=== PATIENT | female | born 1980 | race Caucasian/White ===

== ENCOUNTER 2018-02-24 11:53 | Inpatient (IN) | payer OTHER ==
[2018-02-24 13:07] VITALS: BMI 23.3
[2018-02-24] MEDS ORDERED: P-EPHED 60MG/TRIPROLIDI 2.5MG TABLET PO PRN (13:48)
[2018-02-24] MEDS ORDERED: MENTHOL/PHENOL 1 EACH UD MM PRN (13:48)
[2018-02-24] MEDS ORDERED: ACETAMINOPHEN 325 MG TABLET (FP) PO PRN (13:48)
[2018-02-24] MEDS ORDERED: IBUPROFEN 400 MG TABLET (FP) PO PRN (13:48)
[2018-02-24] MEDS ORDERED: guaiFENesin/D-METHORPHAN HB 10 ML UNIT-DOSE CUPS PO PRN (13:48)
[2018-02-24] MEDS ORDERED: MAGNESIUM CITRATE 300 ML BOTTLE PO PRN (13:48)
[2018-02-24] MEDS ORDERED: LOPERAMIDE HCL 2 MG CAPSULE PO PRN (13:48)
[2018-02-24] MEDS ORDERED: MAGNESIUM HYDROX 2400MG/30ML ORAL SUSPENSION 30 ML CUP PO PRN (13:48)
[2018-02-24] MEDS ORDERED: MAG HYDROX/AL HYDROX/SIMETH 30 ML UNIT-DOSE CUP PO PRN (13:48)
[2018-02-24] MEDS ORDERED: NICOTINE POLACRILEX 2 MG GUM BUC PRN (13:48)
[2018-02-24] MEDS ORDERED: chlordiazePOXIDE HCL 25 MG CAPSULE PO PRN (13:48)
--- NOTE | 2018-02-24 13:53 | HP ---
CIWA Score - CIWA Score Nausea/Vomitin Muscle Tremors: 2 Anxiety: 3 Agitation: 4-Moderately Restless Paroxysmal Sweats: 2 Orientation: 0-Oriented Tacttile Disturbances: 0-None Auditory Disturbances: 0-None Visual Disturbances: 0-None Headache: 2-Mild CIWA-Ar Total Score: 16 Admission ROS BHS - HPI Chief Complaint: alcohol withdrawal symptoms Allergies/Adverse Reactions: Allergies Allergy/AdvReac Type Severity Reaction Status Date / Time Fish Containing Products Allergy Severe Swelling Verified 02/24/18 13:43 History of Present Illness: 37 yo female with hx of nicotine, crack/ cocaine, THC dependence is here seeking detox for the first time, denies prior detox treatment . PMHX : insomnia, anxiety, depression. Denies suicidal / homicidal ideation or hx of suicide attempts. Exam Limitations: No Limitations - Ebola screening Have you traveled outside of the country in the last 21 days: No Have you had contact with anyone from an Ebola affected area: No Have you been sick,other than usual withdrawal symptoms: No Do you have a fever: No - Review of Systems Constitutional: Chills, Diaphoresis, Loss of Appetite, Weakness, Unintentional Wgt. Loss EENT: reports: Other (decrease vision wears glasses) Respiratory: reports: No Symptoms reported Cardiac: reports: No Symptoms Reported GI: reports: Diarrhea, Nausea, Poor Appetite, Poor Fluid Intake, Vomiting : reports: No Symptoms Reported Musculoskeletal: reports: Back Pain Integumentary: reports: No Symptoms Reported Neuro: reports: Headache Endocrine: reports: Increased Thirst Hematology: reports: No Symptoms Reported Psychiatric: reports: Orientated x3, Anxious Other Systems: Reviewed and Negative Patient History - Patient Medical History Hx Anemia: No Hx Asthma: Yes Hx Chronic Obstructive Pulmonary Disease (COPD): No Hx Cancer: No Hx Cardiac Disorders: No Hx Congestive Heart Failure: No Hx Hypertension: No Hx Hypercholesterolemia: No Hx Pacemaker: No HX Cerebrovascular Accident: No Hx Seizures: No Hx Diabetes: No Hx Gastrointestinal Disorders: No Hx Liver Disease: No Hx Genitourinary Disorders: No Hx Sexually Transmitted Disorders: No Hx Renal Disease (ESRD): No Hx Thyroid Disease: No Hx Human Immunodeficiency Virus (HIV): No Hx Hepatitis C: No Hx Depression: Yes Hx Suicide Attempt: No Hx Bipolar Disorder: No Hx Schizophrenia: No - Patient Surgical History Past Surgical History: No - PPD History Previous Implant?: Yes Documented Results: Negative w/o proof Implanted On Prior R Admission?: No PPD to be Administered?: Yes - Reproductive History Last Menstrual Period: 02/03/18 Patient : No - Smoking Cessation Smoking history: Current every day smoker Have you smoked in the past 12 months: Yes Aproximately how many cigarettes per day: 5 Hx Chewing Tobacco Use: No Initiated information on smoking cessation: Yes 'Breaking Loose' booklet given: 02/24/18 - Substance & Tx. History Hx Alcohol Use: Yes Hx Substance Use: Yes Substance Use Type: Alcohol, Cocaine, Marijuana Hx Substance Use Treatment: No - Substances Abused Alcohol Route: Oral Frequency: Daily Amount used: fifth of vodka Age of first use: 11 Date of Last Use: 02/24/18 Crack Route: Smoking Frequency: Daily Amount used: $100 Age of first use: 18 Date of Last Use: 02/23/18 Family Disease History - Family Disease History Family Disease History: Heart Disease: Mother (HTN, DM, Hyperlipidemia ), [place]: Father (alive ), Other: Father, Mother Admission Physical Exam [facility] - Vital Signs Vital Signs: Vital Signs - 24 hr 02/24/18 13:04 Temperature 98.3 F Pulse Rate 67 Respiratory 20 Rate Blood Pressure 115/77 - Physical General Appearance: Yes: Disheveled, Mild Distress, Sweating, Anxious HEENTM: Yes: Hearing grossly Normal, Normal ENT Inspection, Normocephalic, Normal Voice, [place], Tm's normal Respiratory: Yes: Chest Non-Tender, Lungs Clear, Normal Breath Sounds, No Respiratory Distress, No Accessory Muscle Use Neck: Yes: No masses,lesions,Nodules, Trachea in good position Breast: Yes: Breast Exam Deferred Cardiology: Yes: Regular Rhythm, Regular Rate Abdominal: Yes: Normal Bowel Sounds, Non Tender, Flat, Soft Genitourinary: Yes: Within Normal Limits Back: Yes: Normal Inspection Musculoskeletal: Yes: full range of Motion, Gait Steady, Pelvis Stable, Back pain Extremities: Yes: Normal Capillary Refill, Normal Inspection, Normal Range of Motion, Non-Tender, Tremors Neurological: Yes: media aid II-XII NML intact, Fully Oriented, Alert, Motor Strength 5/5, Depressed Affect Integumentary: Yes: Normal Color, Warm, Diaphoresis Lymphatic: Yes: Within Normal Limits - Diagnostic (1) Asthma Current Visit: Yes Status: Acute (2) Alcohol dependence with withdrawal Current Visit: Yes Status: Acute Qualifiers: Complication of substance-induced condition: uncomplicated Qualified Code(s ): F10.230 - Alcohol dependence with withdrawal, uncomplicated (3) Marijuana dependence Current Visit: Yes Status: Acute (4) Cocaine dependence Current Visit: Yes Status: Acute Qualifiers: Substance use status: uncomplicated Qualified Code(s): F14.20 - Cocaine dependence, uncomplicated (5) Nausea and vomiting Current Visit: Yes Status: Acute Qualifiers: Vomiting type: unspecified Cleared for Admission [facility] - Detox or Rehab [facility] Level of Care: Medically Managed Detox Regimen/Protocol: Librium [facility] Breath Alcohol Content Breath Alcohol Content: 0 Urine Pregancy Test - Result Urine Test Results: Negative- NO Line Present Urine Drug Screen - Results Drug Screen Negative: No Urine Drug Screen Results: THC-Marijuana, PACO-Cocaine
[2018-02-24] MEDS ORDERED: ALBUTEROL SO4 0.083% IH SOL 2.5 MG/3 ML VIAL.NEB. NEB PRN (14:01)
[2018-02-24] MEDS ORDERED: ONDANSETRON *ODT* 4 MG TABLET SL PRN (14:02)
[2018-02-24] MEDS ORDERED: chlordiazePOXIDE HCL 25 MG CAPSULE PO ONE (14:30)
[2018-02-24] MEDS: chlordiazePOXIDE HCL 25 MG CAPSULE PO SCH ×2 (17:44→22:14)
[2018-02-24 19:46] LABS: URINE APPEARANCE CLEAR; URINE BILIRUBIN NEGATIVE (<2.0 mg/dL); URINE COLOR YELLOW; URINE GLUCOSE (UA) NEGATIVE (NEGATIVE); URINE KETONE NEGATIVE (NEGATIVE); URINE LEUK ESTERASE NEGATIVE (NEGATIVE); URINE NITRITE NEGATIVE (NEGATIVE); URINE PROTEIN NEGATIVE (NEGATIVE); URINE UROBILINOGEN NEGATIVE mg/dL (0.2-1.0)
[2018-02-24] MEDS: MELATONIN 5 MG TABLETS PO PRN (22:14)
[2018-02-24] MEDS: THIAMINE HCL 100 MG TABLET (FP) PO SCH (22:14)
[2018-02-25] MEDS: chlordiazePOXIDE HCL 25 MG CAPSULE PO SCH ×4 (05:54→22:27)
[2018-02-25] MEDS: PRENATAL VITAMINS W/ FOLIC ACID TABLET (FP) PO SCH (10:32)
[2018-02-25] MEDS: NICOTINE 14 MG/24 HOURS TOPICAL PATCH TD SCH (10:33)
[2018-02-25 10:35] LABS: HEMATOCRIT 39.9 % (32.4-45.2); HEMOGLOBIN 13.5 GM/dL (10.7-15.3); MCHC 33.9 g/dl (32.0-36.0); MEAN CELL VOLUME 94.5 fl (80-96); MEAN PLT VOLUME 8.9 fl (7.5-11.1); PLATELET COUNT 235 K/MM3 (134-434); RBC 4.23 M/mm3 (3.60-5.2); RDW 13.3 % (11.6-15.6)
[2018-02-25 11:01] LABS: ALBUMIN 3.2 g/dl (3.4-5.0); ANION GAP 8 (8-16); BLOOD UREA NITROGEN 13 mg/dL (7-18); CHLORIDE 109 mmol/L (98-107); CO2 22 mmol/L (21-32); CREATININE 0.7 mg/dL (0.55-1.02); GLUCOSE,RANDOM 76 mg/dL (74-106); POTASSIUM 4.5 mmol/L (3.5-5.1); SGOT/AST 14 U/L (15-37); SGPT/ALT 19 U/L (12-78); SODIUM 139 mmol/L (136-145)
[2018-02-25 11:03] LABS: ALK PHOS 47 U/L (45-117); BILIRUBIN,TOTAL 0.6 mg/dL (0.2-1.0); TOT PROT 6.4 g/dl (6.4-8.2)
--- NOTE | 2018-02-25 17:04 | PN ---
S CIWA - CIWA Score Nausea/Vomitin Muscle Tremors: 2 Anxiety: 2 Agitation: 2 Paroxysmal Sweats: 2 Orientation: 0-Oriented Tacttile Disturbances: 2-Mild Itch/Numbness/Burn Auditory Disturbances: 0-None Visual Disturbances: 1-Very Mild Sensitivity Headache: 2-Mild CIWA-Ar Total Score: 15 S Progress Note (SOAP) Subjective: Tremors, abdominal cramps sweats and sleep interruption Objective: 02/25/18 17:02 Vital Signs - 8 hr 02/25/18 02/25/18 10:48 15:05 Temperature 97.7 F 98.4 F Pulse Rate 68 84 Respiratory 16 18 Rate Blood Pressure 123/80 110/64 Laboratory Last Values WBC 7.0 K/mm3 (4.0-10.0) 02/25/18 08:00 RBC 4.23 M/mm3 (3.60-5.2) 02/25/18 08:00 Hgb 13.5 GM/dL (10.7-15.3) 02/25/18 08:00 Hct 39.9 % (32.4-45.2) 02/25/18 08:00 MCV 94.5 fl (80-96) 02/25/18 08:00 MCH 32.0 pg (25.7-33.7) 02/25/18 08:00 MCHC 33.9 g/dl (32.0-36.0) 02/25/18 08:00 RDW 13.3 % (11.6-15.6) 02/25/18 08:00 Plt Count 235 K/MM3 (134-434) 02/25/18 08:00 MPV 8.9 fl (7.5-11.1) 02/25/18 08:00 Sodium 139 mmol/L (136-145) 02/25/18 08:00 Potassium 4.5 mmol/L (3.5-5.1) 02/25/18 08:00 Chloride 109 mmol/L (98-107) H 02/25/18 08:00 Carbon Dioxide 22 mmol/L (21-32) 02/25/18 08:00 Anion Gap 8 (8-16) 02/25/18 08:00 BUN 13 mg/dL (7-18) 02/25/18 08:00 Creatinine 0.7 mg/dL (0.55-1.02) 02/25/18 08:00 Creat Clearance w eGFR > 60 (>60) 02/25/18 08:00 Random Glucose 76 mg/dL (74-106) 02/25/18 08:00 Calcium 8.0 mg/dL (8.5-10.1) L 02/25/18 08:00 Total Bilirubin 0.6 mg/dL (0.2-1.0) 02/25/18 08:00 AST 14 U/L (15-37) L 02/25/18 08:00 ALT 19 U/L (12-78) 02/25/18 08:00 Alkaline Phosphatase 47 U/L (45-117) 02/25/18 08:00 Total Protein 6.4 g/dl (6.4-8.2) 02/25/18 08:00 Albumin 3.2 g/dl (3.4-5.0) L 02/25/18 08:00 Urine Color Yellow 02/24/18 14:14 Urine Appearance Clear 02/24/18 14:14 Urine pH 6.0 (5.0-8.0) 02/24/18 14:14 Ur Specific [place] 1.019 (1.001-1.035) 02/24/18 14:14 Urine Protein Negative (NEGATIVE) 02/24/18 14:14 Urine Glucose (UA) Negative (NEGATIVE) 02/24/18 14:14 Urine Ketones Negative (NEGATIVE) 02/24/18 14:14 Urine Blood Negative (NEGATIVE) 02/24/18 14:14 Urine Nitrite Negative (NEGATIVE) 02/24/18 14:14 Urine Bilirubin Negative (<2.0 mg/dL) 02/24/18 14:14 Urine Urobilinogen Negative mg/dL (0.2-1.0) 02/24/18 14:14 Ur Leukocyte Esterase Negative (NEGATIVE) 02/24/18 14:14 HIV 1&2 Antibody Screen Negative 02/25/18 08:00 HIV P24 Antigen Negative 02/25/18 08:00 Labs noted Assessment: 02/25/18 17:03 Withdrawal sx Plan: Continue detox
[2018-02-25] MEDS: hydrOXYzine PAMOATE 50 MG CAPSULE (FP) PO PRN (20:45)
[2018-02-25] MEDS: THIAMINE HCL 100 MG TABLET (FP) PO SCH (22:27)
[2018-02-25] MEDS: MELATONIN 5 MG TABLETS PO PRN (22:27)
[2018-02-26] MEDS: chlordiazePOXIDE HCL 25 MG CAPSULE PO SCH ×2 (06:17→10:33)
[2018-02-26] MEDS: PRENATAL VITAMINS W/ FOLIC ACID TABLET (FP) PO SCH (10:32)
[2018-02-26] MEDS: NICOTINE 14 MG/24 HOURS TOPICAL PATCH TD SCH (10:33)
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
--- NOTE | 2018-02-26 12:17 | PN ---
S CIWA - CIWA Score Nausea/Vomitin-Mild Nausea/No Vomiting Muscle Tremors: 4-Moderate,w/Arms Extend Anxiety: 3 Agitation: 3 Paroxysmal Sweats: 1-Minimal Palms Moist Orientation: 0-Oriented Tacttile Disturbances: 1-Very Mild Itch/Numbness Auditory Disturbances: 0-None Visual Disturbances: 0-None Headache: 0-None Present CIWA-Ar Total Score: 13 BHS Progress Note (SOAP) Subjective: SWEAT TREMOR TROUBLE SLEEP AT NIGHT WANTS TO FOLLOW UP WITH PSYCHIATRIST FOR PSYCHOTROPIC MEDICATION Objective: 02/26/18 12:16 Vital Signs Temperature 97.9 F 02/26/18 10:28 Pulse Rate 73 02/26/18 10:28 Respiratory Rate 18 02/26/18 10:28 Blood Pressure 119/72 02/26/18 10:28 O2 Sat by Pulse Oximetry (%) Laboratory 02/24/18 02/25/18 02/25/18 14:14 08:00 08:00 WBC 7.0 K/mm3 K/mm3 (4.0-10.0) RBC 4.23 M/mm3 M/mm3 (3.60-5.2) Hgb 13.5 GM/dL GM/dL (10.7-15.3) Hct 39.9 % % (32.4-45.2) MCV 94.5 fl fl (80-96) MCH 32.0 pg pg (25.7-33.7) MCHC 33.9 g/dl g/dl (32.0-36.0) RDW 13.3 % % (11.6-15.6) Plt Count 235 K/MM3 K/MM3 (134-434) MPV 8.9 fl fl (7.5-11.1) Sodium Potassium Chloride Carbon Dioxide Anion Gap BUN Creatinine Creat Clearance w eGFR Random Glucose Calcium Total Bilirubin AST ALT Alkaline Phosphatase Total Protein Albumin Urine Color Yellow Urine Appearance Clear Urine pH 6.0 (5.0-8.0) Ur Specific [place] 1.019 (1.001-1.035) Urine Protein Negative (NEGATIVE) Urine Glucose (UA) Negative (NEGATIVE) Urine Ketones Negative (NEGATIVE) Urine Blood Negative (NEGATIVE) Urine Nitrite Negative (NEGATIVE) Urine Bilirubin Negative (<2.0 mg/dL) Urine Urobilinogen Negative mg/dL mg/dL (0.2-1.0) Ur Leukocyte Esterase Negative (NEGATIVE) RPR Titer HIV 1&2 Antibody Screen Negative HIV P24 Antigen Negative 02/25/18 02/25/18 08:00 08:00 WBC RBC Hgb Hct MCV MCH MCHC RDW Plt Count MPV Sodium 139 mmol/L mmol/L (136-145) Potassium 4.5 mmol/L mmol/L (3.5-5.1) Chloride 109 mmol/L H mmol/L (98-107) Carbon Dioxide 22 mmol/L mmol/L (21-32) Anion Gap 8 (8-16) BUN 13 mg/dL mg/dL (7-18) Creatinine 0.7 mg/dL mg/dL (0.55-1.02) Creat Clearance w eGFR > 60 (>60) Random Glucose 76 mg/dL mg/dL (74-106) Calcium 8.0 mg/dL L mg/dL (8.5-10.1) Total Bilirubin 0.6 mg/dL mg/dL (0.2-1.0) AST 14 U/L L U/L (15-37) ALT 19 U/L U/L (12-78) Alkaline Phosphatase 47 U/L U/L (45-117) Total Protein 6.4 g/dl g/dl (6.4-8.2) Albumin 3.2 g/dl L g/dl (3.4-5.0) Urine Color Urine Appearance Urine pH Ur Specific [place] Urine Protein Urine Glucose (UA) Urine Ketones Urine Blood Urine Nitrite Urine Bilirubin Urine Urobilinogen Ur Leukocyte Esterase RPR Titer Nonreactive (NONREACTIVE) HIV 1&2 Antibody Screen HIV P24 Antigen Laboratory Last Values WBC 7.0 K/mm3 (4.0-10.0) 02/25/18 08:00 RBC 4.23 M/mm3 (3.60-5.2) 02/25/18 08:00 Hgb 13.5 GM/dL (10.7-15.3) 02/25/18 08:00 Hct 39.9 % (32.4-45.2) 02/25/18 08:00 MCV 94.5 fl (80-96) 02/25/18 08:00 MCH 32.0 pg (25.7-33.7) 02/25/18 08:00 MCHC 33.9 g/dl (32.0-36.0) 02/25/18 08:00 RDW 13.3 % (11.6-15.6) 02/25/18 08:00 Plt Count 235 K/MM3 (134-434) 02/25/18 08:00 MPV 8.9 fl (7.5-11.1) 02/25/18 08:00 Sodium 139 mmol/L (136-145) 02/25/18 08:00 Potassium 4.5 mmol/L (3.5-5.1) 02/25/18 08:00 Chloride 109 mmol/L (98-107) H 02/25/18 08:00 Carbon Dioxide 22 mmol/L (21-32) 02/25/18 08:00 Anion Gap 8 (8-16) 02/25/18 08:00 BUN 13 mg/dL (7-18) 02/25/18 08:00 Creatinine 0.7 mg/dL (0.55-1.02) 02/25/18 08:00 Creat Clearance w eGFR > 60 (>60) 02/25/18 08:00 Random Glucose 76 mg/dL (74-106) 02/25/18 08:00 Calcium 8.0 mg/dL (8.5-10.1) L 02/25/18 08:00 Total Bilirubin 0.6 mg/dL (0.2-1.0) 02/25/18 08:00 AST 14 U/L (15-37) L 02/25/18 08:00 ALT 19 U/L (12-78) 02/25/18 08:00 Alkaline Phosphatase 47 U/L (45-117) 02/25/18 08:00 Total Protein 6.4 g/dl (6.4-8.2) 02/25/18 08:00 Albumin 3.2 g/dl (3.4-5.0) L 02/25/18 08:00 Urine Color Yellow 02/24/18 14:14 Urine Appearance Clear 02/24/18 14:14 Urine pH 6.0 (5.0-8.0) 02/24/18 14:14 Ur Specific [place] 1.019 (1.001-1.035) 02/24/18 14:14 Urine Protein Negative (NEGATIVE) 02/24/18 14:14 Urine Glucose (UA) Negative (NEGATIVE) 02/24/18 14:14 Urine Ketones Negative (NEGATIVE) 02/24/18 14:14 Urine Blood Negative (NEGATIVE) 02/24/18 14:14 Urine Nitrite Negative (NEGATIVE) 02/24/18 14:14 Urine Bilirubin Negative (<2.0 mg/dL) 02/24/18 14:14 Urine Urobilinogen Negative mg/dL (0.2-1.0) 02/24/18 14:14 Ur Leukocyte Esterase Negative (NEGATIVE) 02/24/18 14:14 RPR Titer Nonreactive (NONREACTIVE) 02/25/18 08:00 HIV 1&2 Antibody Screen Negative 02/25/18 08:00 HIV P24 Antigen Negative 02/25/18 08:00 LAB NOTED Assessment: 02/26/18 12:16 WITHDRAWAL SX PSYCHIATRY REFERRAL Plan: CONTINUE DETOX
[2018-02-26] MEDS: hydrOXYzine PAMOATE 50 MG CAPSULE (FP) PO PRN (14:29)
[2018-02-26] MEDS ORDERED: chlordiazePOXIDE 5 MG CAPSULE PO SCH (17:00)
[2018-02-26 18:56] VITALS: BP 102/57; PULSE 85; TEMP 98.1
--- NOTE | 2018-02-26 20:01 | PN ---
BHS Progress Note Note: NURSE CALLED TO REPORT PATIENT WANTS TO LEAVE AND DOES NOT WANT TO SEE PROVIDER.
--- NOTE | 2018-02-26 20:02 | DS ---
[facility] Detox Discharge Summary Admission Date: 02/24/18 Discharge Date: 02/26/18 - History Present History: Alcohol Dependence, Cannabis Dependence, Cocaine Dependence Additional Comments: PT SIGNED OUT AMA. DECLINED TO COMPLETE DETOX. Pertinent Past History: PLEASE SEE DX BELOW. - Physical Exam Results Vital Signs: Vital Signs Temperature 98.1 F 02/26/18 18:56 Pulse Rate 85 02/26/18 18:56 Respiratory Rate 16 02/26/18 18:56 Blood Pressure 102/57 02/26/18 18:56 O2 Sat by Pulse Oximetry (%) Pertinent Admission Physical Exam Findings: WITHDRAWAL SX - Treatment Hospital Course: Discharged Condition Good - Medication Discharge Medications: Ambulatory Orders Gabapentin [Neurontin -] 300 mg PO Q8H 02/24/18 Trazodone HCl 150 mg PO HS 02/24/18 - Diagnosis (1) Alcohol dependence with withdrawal Status: Acute Qualifiers: Complication of substance-induced condition: uncomplicated Qualified Code(s ): F10.230 - Alcohol dependence with withdrawal, uncomplicated (2) Asthma Status: Acute Qualifiers: Asthma severity: mild Asthma persistence: intermittent (3) Cocaine dependence Status: Acute Qualifiers: Substance use status: uncomplicated Qualified Code(s): F14.20 - Cocaine dependence, uncomplicated (4) Marijuana dependence Status: Acute - AMA Did Patient Leave Against Medical Advice: Yes (AMA)
[2018-02-27] MEDS ORDERED: chlordiazePOXIDE HCL 10 MG CAPSULE PO SCH (17:00)
--- NOTE | 2018-02-27 22:16 | EKG ---
Test Reason : Blood Pressure : / mmHG Vent. Rate : 076 BPM Atrial Rate : 076 BPM P-R Int : 146 ms QRS Dur : 090 ms QT Int : 416 ms P-R-T Axes : 065 083 066 degrees QTc Int : 468 ms NORMAL SINUS RHYTHM NORMAL ECG NO PREVIOUS ECGS AVAILABLE Confirmed by DILMA ORTEGA MD ([id number]) on 02/27/2018 10:16:34 PM Referred By: Confirmed By:DILMA ORTEGA MD
== END 2018-02-26 19:00 | disposition left against medical advice (07) | DRG 770 ==
LOC: YASAS 11:53 → Y6N 14:02
PROVIDERS: ADMIT Family Medicine Addiction Medicine; ATTEND Family Medicine Addiction Medicine
PROC: HZ2ZZZZ Detoxification Services for Substance Abuse Treatment (ICD-10-PCS; principal; 2018-02-24)
DX: F10.230 Alcohol dependence with withdrawal, uncomplicated (principal); F14.20 Cocaine dependence, uncomplicated; F12.20 Cannabis dependence, uncomplicated; F19.24 Other psychoactive substance dependence with psychoactive substance-induced mood disorder; F19.282 Other psychoactive substance dependence with psychoactive substance-induced sleep disorder; J45.909 Unspecified asthma, uncomplicated; R11.2 Nausea with vomiting, unspecified
CPT/HCPCS: 36415; 80053; 81003; 85027; 86593; 87389; 93005; 93010

== ENCOUNTER 2018-04-27 16:01 | Inpatient (IN) | payer OTHER ==
[2018-04-27 16:21] VITALS: BMI 25.0
[2018-04-27] MEDS ORDERED: MAG HYDROX/AL HYDROX/SIMETH 30 ML UNIT-DOSE CUP PO PRN (17:51)
[2018-04-27] MEDS ORDERED: ACETAMINOPHEN 325 MG TABLET (FP) PO PRN (17:51)
[2018-04-27] MEDS ORDERED: LOPERAMIDE HCL 2 MG CAPSULE PO PRN (17:51)
[2018-04-27] MEDS ORDERED: NICOTINE POLACRILEX 4 MG GUM BC PRN (17:51)
[2018-04-27] MEDS ORDERED: guaiFENesin/D-METHORPHAN HB 10 ML UNIT-DOSE CUPS PO PRN (17:51)
[2018-04-27] MEDS ORDERED: MAGNESIUM CITRATE 300 ML BOTTLE PO PRN (17:51)
[2018-04-27] MEDS ORDERED: MENTHOL/PHENOL 1 EACH UD MM PRN (17:51)
[2018-04-27] MEDS ORDERED: MAGNESIUM HYDROX 2400MG/30ML ORAL SUSPENSION 30 ML CUP PO PRN (17:51)
[2018-04-27] MEDS ORDERED: P-EPHED 60MG/TRIPROLIDI 2.5MG TABLET PO PRN (17:51)
--- NOTE | 2018-04-27 17:51 | HP ---
CIWA Score - CIWA Score Nausea/Vomitin-No Nausea/No Vomiting Muscle Tremors: 4-Moderate,w/Arms Extend Anxiety: 4-Mod. Anxious/Guarded Agitation: 4-Moderately Restless Paroxysmal Sweats: 3 Orientation: 0-Oriented Tacttile Disturbances: 0-None Auditory Disturbances: 0-None Visual Disturbances: 0-None Headache: 1-Very Mild CIWA-Ar Total Score: 16 Admission ROS BHS - HPI Chief Complaint: I am here to detox. Allergies/Adverse Reactions: Allergies Allergy/AdvReac Type Severity Reaction Status Date / Time Fish Containing Products Allergy Severe Swelling Verified 02/24/18 13:43 mushroom Allergy Severe Hives Verified 04/27/18 17:08 History of Present Illness: pt is a 38yr old female with a history of alcohol and crack/cocaine dependence seeking detox for treatment. Exam Limitations: No Limitations - Ebola screening Have you traveled outside of the country in the last 21 days: No (N) Have you had contact with anyone from an Ebola affected area: No Have you been sick,other than usual withdrawal symptoms: No Do you have a fever: No - Review of Systems Constitutional: Diaphoresis, Loss of Appetite, Changes in sleep, Unintentional Wgt. Loss EENT: reports: No Symptoms Reported Respiratory: reports: No Symptoms reported Cardiac: reports: No Symptoms Reported GI: reports: Poor Appetite, Poor Fluid Intake, Indigestion : reports: No Symptoms Reported Musculoskeletal: reports: Back Pain, Joint Pain Integumentary: reports: Flushing, Sweating Neuro: reports: Headache, Tingling, Tremors Endocrine: reports: Flushing, Intolerance to Cold, Intolerance to Heat Hematology: reports: No Symptoms Reported Psychiatric: reports: Judgement Intact, Mood/Affect Appropiate, Orientated x3, Agitated, Anxious Other Systems: Reviewed and Negative Patient History - Patient Medical History Hx Anemia: No Hx Asthma: Yes Hx Chronic Obstructive Pulmonary Disease (COPD): No Hx Cancer: No Hx Cardiac Disorders: No Hx Congestive Heart Failure: No Hx Hypertension: No Hx Hypercholesterolemia: No Hx Pacemaker: No HX Cerebrovascular Accident: No Hx Seizures: No Hx Diabetes: No Hx Gastrointestinal Disorders: No Hx Liver Disease: No Hx Genitourinary Disorders: No Hx Sexually Transmitted Disorders: No Hx Renal Disease (ESRD): No Hx Thyroid Disease: No Hx Human Immunodeficiency Virus (HIV): No (negative) Hx Hepatitis C: No (negative) Hx Depression: Yes Hx Suicide Attempt: No Hx Bipolar Disorder: No Hx Schizophrenia: No - Patient Surgical History Past Surgical History: No Hx Neurologic Surgery: No Hx Cataract Extraction: No Hx Cardiac Surgery: No Hx Lung Surgery: No Hx Breast Surgery: No Hx Breast Biopsy: No Hx Abdominal Surgery: No Hx Appendectomy: No Hx Cholecystectomy: No Hx Genitourinary Surgery: No Hx Section: No Hx Orthopedic Surgery: No Anesthesia Reaction: No - PPD History Previous Implant?: Yes Date: 02/26/18 PPD to be Administered?: No - Reproductive History Patient is a Female of Child Bearing Age (11 -55 yrs old): Yes Last Menstrual Period: 04/27/18 - Smoking Cessation Smoking history: Current every day smoker Have you smoked in the past 12 months: Yes Aproximately how many cigarettes per day: 20 Hx Chewing Tobacco Use: No Initiated information on smoking cessation: Yes 'Breaking Loose' booklet given: 04/27/18 - Substance & Tx. History Hx Alcohol Use: Yes Hx Substance Use: Yes Substance Use Type: Alcohol, Cocaine Hx Substance Use Treatment: Yes (last detox [facility] 02/2018) - Substances Abused Alcohol Route: Oral Frequency: Daily Amount used: LIQUOR- 1/5, BEER- 2 SIX PACKS Age of first use: 19 Date of Last Use: 04/27/18 Crack Route: Smoking Frequency: Daily Amount used: $200 [place] Age of first use: 19 Date of Last Use: 04/26/18 Family Disease History - Family Disease History Family Disease History: Heart Disease: Mother (HTN, DM, Hyperlipidemia ), [place]: Father (alive ), Other: Father, Mother Admission Physical Exam [facility] - Vital Signs Vital Signs: Vital Signs - 24 hr 04/27/18 16:19 Temperature 97.6 F Pulse Rate 69 Respiratory 18 Rate Blood Pressure 122/73 - Physical General Appearance: Yes: Appropriately Dressed, Moderate Distress, Tremorous, Irritable, Sweating, Anxious HEENTM: Yes: Hearing grossly Normal, Normal Voice, Nasal Congestion, Rhinorrhea Respiratory: Yes: Lungs Clear, Normal Breath Sounds, No Respiratory Distress Neck: Yes: No masses,lesions,Nodules Breast: Yes: Within Normal Limits, No Discharge, No masses Cardiology: Yes: Regular Rhythm, Regular Rate, S1, S2 Abdominal: Yes: Normal Bowel Sounds, Non Tender, Soft Genitourinary: Yes: Within Normal Limits Back: Yes: Normal Inspection Musculoskeletal: Yes: full range of Motion, Back pain Extremities: Yes: Normal Capillary Refill, Normal Inspection, Non-Tender, Tremors Neurological: Yes: Fully Oriented, Alert, Normal Response Integumentary: Yes: Normal Color, Diaphoresis Lymphatic: Yes: Within Normal Limits - Diagnostic (1) Alcohol dependence with withdrawal Current Visit: Yes Status: Chronic Qualifiers: Complication of substance-induced condition: uncomplicated (2) Asthma Current Visit: Yes Status: Chronic Qualifiers: Asthma severity: mild (3) Cocaine dependence Current Visit: Yes Status: Chronic Qualifiers: Substance use status: uncomplicated Cleared for Admission [facility] - Detox or Rehab [facility] Level of Care: Medically Managed Detox Regimen/Protocol: Librium [facility] Breath Alcohol Content Breath Alcohol Content: 0 Urine Pregancy Test - Result Urine Test Results: Negative- NO Line Present Urine Drug Screen - Results Drug Screen Negative: No Urine Drug Screen Results: PACO-Cocaine
[2018-04-27] MEDS ORDERED: ALBUTEROL SO4 8 GM HFA INHALER IH PRN (17:52)
[2018-04-27] MEDS ORDERED: chlordiazePOXIDE HCL 25 MG CAPSULE PO ONE (18:30)
[2018-04-27 21:19] LABS: URINE APPEARANCE CLEAR; URINE BILIRUBIN NEGATIVE (<2.0 mg/dL); URINE COLOR LTYELLOW; URINE GLUCOSE (UA) NEGATIVE (NEGATIVE); URINE KETONE NEGATIVE (NEGATIVE); URINE LEUK ESTERASE NEGATIVE (NEGATIVE); URINE NITRITE NEGATIVE (NEGATIVE); URINE PROTEIN NEGATIVE (NEGATIVE); URINE UROBILINOGEN NEGATIVE mg/dL (0.2-1.0)
[2018-04-27 21:24] LABS: URINE MUCUS RARE
[2018-04-27] MEDS: MELATONIN 5 MG TABLETS PO PRN (22:13)
[2018-04-27] MEDS: chlordiazePOXIDE HCL 25 MG CAPSULE PO SCH (22:13)
[2018-04-27] MEDS: THIAMINE HCL 100 MG TABLET (FP) PO SCH (22:13)
[2018-04-28] MEDS: chlordiazePOXIDE HCL 25 MG CAPSULE PO SCH ×4 (05:16→22:39)
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
[2018-04-28 10:02] LABS: HEMATOCRIT 41.6 % (32.4-45.2); HEMOGLOBIN 14.1 GM/dL (10.7-15.3); MCH 31.6 pg (25.7-33.7); MCHC 33.9 g/dl (32.0-36.0); MEAN CELL VOLUME 93.3 fl (80-96); MEAN PLT VOLUME 7.8 fl (7.5-11.1); PLATELET COUNT 285 K/MM3 (134-434); RBC 4.46 M/mm3 (3.60-5.2); RDW 13.1 % (11.6-15.6); WHITE BLOOD COUNT 5.9 K/mm3 (4.0-10.0)
[2018-04-28 10:16] LABS: CHLORIDE 108 mmol/L (98-107); SODIUM 142 mmol/L (136-145)
[2018-04-28 10:38] LABS: ALBUMIN 3.2 g/dl (3.4-5.0); ALK PHOS 50 U/L (45-117); ANION GAP 9 MMOL/L (8-16); BILIRUBIN,TOTAL 0.4 mg/dL (0.2-1.0); BLOOD UREA NITROGEN 8 mg/dL (7-18); CALCIUM 8.4 mg/dL (8.5-10.1); CO2 25 mmol/L (21-32); CREATININE 0.6 mg/dL (0.55-1.02); GLUCOSE,RANDOM 82 mg/dL (74-106); SGOT/AST 13 U/L (15-37); SGPT/ALT 19 U/L (12-78); TOT PROT 6.3 g/dl (6.4-8.2)
[2018-04-28] MEDS: PRENATAL VITAMINS W/ FOLIC ACID TABLET (FP) PO SCH (10:54)
[2018-04-28] MEDS: NICOTINE 21 MG/24 HOURS TOPICAL PATCH TD SCH (10:54)
[2018-04-28] MEDS: IBUPROFEN 400 MG TABLET (FP) PO PRN (10:55)
--- NOTE | 2018-04-28 12:01 | PN ---
S CIWA - CIWA Score Nausea/Vomitin Muscle Tremors: 3 Anxiety: 2 Agitation: 2 Paroxysmal Sweats: 3 Orientation: 0-Oriented Tacttile Disturbances: 2-Mild Itch/Numbness/Burn Auditory Disturbances: 0-None Visual Disturbances: 0-None Headache: 0-None Present CIWA-Ar Total Score: 15 BHS Progress Note (SOAP) Subjective: interrupted sleep, sweat, shakes Objective: 04/28/18 11:58 Vital Signs Temperature 97.9 F 04/28/18 11:16 Pulse Rate 72 04/28/18 11:16 Respiratory Rate 16 04/28/18 11:16 Blood Pressure 104/53 04/28/18 11:16 O2 Sat by Pulse Oximetry (%) Laboratory Tests 04/27/18 04/28/18 04/28/18 20:45 07:00 07:00 WBC 5.9 RBC 4.46 Hgb 14.1 Hct 41.6 MCV 93.3 MCH 31.6 MCHC 33.9 RDW 13.1 Plt Count 285 D MPV 7.8 D Sodium 142 Potassium 4.0 Chloride 108 H Carbon Dioxide 25 Anion Gap 9 BUN 8 Creatinine 0.6 Creat Clearance w eGFR > 60 Random Glucose 82 Calcium 8.4 L Total Bilirubin 0.4 AST 13 L ALT 19 Alkaline Phosphatase 50 Total Protein 6.3 L Albumin 3.2 L Urine Color Ltyellow Urine Appearance Clear Urine pH 6.0 Ur Specific [place] 1.016 Urine Protein Negative Urine Glucose (UA) Negative Urine Ketones Negative Urine Blood 2+ H Urine Nitrite Negative Urine Bilirubin Negative Urine Urobilinogen Negative Ur Leukocyte Esterase Negative Urine WBC (Auto) 1 Urine RBC (Auto) 50 Urine Mucus Rare pt aox3 in nad ambulating Assessment: 04/28/18 11:59 withdrawal sx's menses Plan: cont. detox increase fluids
--- NOTE | 2018-04-28 12:09 | EKG ---
Test Reason : Blood Pressure : / mmHG Vent. Rate : 059 BPM Atrial Rate : 059 BPM P-R Int : 124 ms QRS Dur : 084 ms QT Int : 410 ms P-R-T Axes : 059 084 069 degrees QTc Int : 405 ms SINUS BRADYCARDIA OTHERWISE NORMAL ECG WHEN COMPARED WITH ECG OF 24-FEB-2018 14:21, QT HAS SHORTENED Confirmed by DAVID ELLIS MD ([id number]) on 04/28/2018 12:09:27 PM Referred By: Confirmed By:DAVID ELLIS MD
[2018-04-28] MEDS: GABAPENTIN 300 MG CAPSULE (FP) PO SCH ×2 (15:02→22:38)
[2018-04-28] MEDS: chlordiazePOXIDE HCL 25 MG CAPSULE PO PRN ×2 (15:04→21:01)
[2018-04-28] MEDS ORDERED: traZODone HCL 150 MG TABLET PO SCH (22:00)
[2018-04-28] MEDS: THIAMINE HCL 100 MG TABLET (FP) PO SCH (22:38)
[2018-04-28] MEDS: traZODone HCL 100 MG TABLET (FP) PO SCH (22:38)
[2018-04-29] MEDS: GABAPENTIN 300 MG CAPSULE (FP) PO SCH ×3 (06:03→22:34)
[2018-04-29] MEDS: chlordiazePOXIDE HCL 25 MG CAPSULE PO SCH ×3 (06:03→17:03)
[2018-04-29] MEDS: PRENATAL VITAMINS W/ FOLIC ACID TABLET (FP) PO SCH (11:27)
[2018-04-29] MEDS: hydrOXYzine PAMOATE 50 MG CAPSULE (FP) PO PRN ×2 (11:27→22:37)
[2018-04-29] MEDS: NICOTINE 21 MG/24 HOURS TOPICAL PATCH TD SCH (11:28)
--- NOTE | 2018-04-29 13:56 | PN ---
S CIWA - CIWA Score Nausea/Vomitin Muscle Tremors: 3 Anxiety: 2 Agitation: 2 Paroxysmal Sweats: 2 Orientation: 0-Oriented Tacttile Disturbances: 0-None Auditory Disturbances: 0-None Visual Disturbances: 0-None Headache: 2-Mild CIWA-Ar Total Score: 14 S Progress Note (SOAP) Subjective: Sweats, tremors and pain Objective: 04/29/18 13:56 Vital Signs 04/29/18 04/29/18 06:00 09:48 Temperature 97.7 F 98.5 F Pulse Rate 85 91 H Respiratory 18 18 Rate Blood Pressure 108/59 130/77 Laboratory Last Values WBC 5.9 K/mm3 (4.0-10.0) 04/28/18 07:00 RBC 4.46 M/mm3 (3.60-5.2) 04/28/18 07:00 Hgb 14.1 GM/dL (10.7-15.3) 04/28/18 07:00 Hct 41.6 % (32.4-45.2) 04/28/18 07:00 MCV 93.3 fl (80-96) 04/28/18 07:00 MCH 31.6 pg (25.7-33.7) 04/28/18 07:00 MCHC 33.9 g/dl (32.0-36.0) 04/28/18 07:00 RDW 13.1 % (11.6-15.6) 04/28/18 07:00 Plt Count 285 K/MM3 (134-434) D 04/28/18 07:00 MPV 7.8 fl (7.5-11.1) D 04/28/18 07:00 Sodium 142 mmol/L (136-145) 04/28/18 07:00 Potassium 4.0 mmol/L (3.5-5.1) 04/28/18 07:00 Chloride 108 mmol/L (98-107) H 04/28/18 07:00 Carbon Dioxide 25 mmol/L (21-32) 04/28/18 07:00 Anion Gap 9 MMOL/L (8-16) 04/28/18 07:00 BUN 8 mg/dL (7-18) 04/28/18 07:00 Creatinine 0.6 mg/dL (0.55-1.02) 04/28/18 07:00 Creat Clearance w eGFR > 60 (>60) 04/28/18 07:00 Random Glucose 82 mg/dL (74-106) 04/28/18 07:00 Calcium 8.4 mg/dL (8.5-10.1) L 04/28/18 07:00 Total Bilirubin 0.4 mg/dL (0.2-1.0) 04/28/18 07:00 AST 13 U/L (15-37) L 04/28/18 07:00 ALT 19 U/L (12-78) 04/28/18 07:00 Alkaline Phosphatase 50 U/L (45-117) 04/28/18 07:00 Total Protein 6.3 g/dl (6.4-8.2) L 04/28/18 07:00 Albumin 3.2 g/dl (3.4-5.0) L 04/28/18 07:00 Urine Color Ltyellow 04/27/18 20:45 Urine Appearance Clear 04/27/18 20:45 Urine pH 6.0 (5.0-8.0) 04/27/18 20:[address] 1.016 (1.001-1.035) 04/27/18 20:45 Urine Protein Negative (NEGATIVE) 04/27/18 20:45 Urine Glucose (UA) Negative (NEGATIVE) 04/27/18 20:45 Urine Ketones Negative (NEGATIVE) 04/27/18 20:45 Urine Blood 2+ (NEGATIVE) H 04/27/18 20:45 Urine Nitrite Negative (NEGATIVE) 04/27/18 20:45 Urine Bilirubin Negative (<2.0 mg/dL) 04/27/18 20:45 Urine Urobilinogen Negative mg/dL (0.2-1.0) 04/27/18 20:45 Ur Leukocyte Esterase Negative (NEGATIVE) 04/27/18 20:45 Urine WBC (Auto) 1 /hpf (3-5) 04/27/18 20:45 Urine RBC (Auto) 50 /hpf (0-3) 04/27/18 20:45 Urine Mucus Rare 04/27/18 20:45 RPR Titer Nonreactive (NONREACTIVE) 04/28/18 07:00 HIV 1&2 Antibody Screen Negative 04/28/18 07:00 HIV P24 Antigen Negative 04/28/18 07:00 Labs noted Assessment: 04/29/18 13:56 Withdrawal sx Plan: Continue detox
[2018-04-29] MEDS: chlordiazePOXIDE HCL 25 MG CAPSULE PO PRN (14:27)
[2018-04-29] MEDS: IBUPROFEN 400 MG TABLET (FP) PO PRN ×2 (17:05→22:35)
[2018-04-29] MEDS: THIAMINE HCL 100 MG TABLET (FP) PO SCH (22:34)
[2018-04-29] MEDS: MELATONIN 5 MG TABLETS PO PRN (22:34)
[2018-04-29] MEDS: chlordiazePOXIDE 5 MG CAPSULE PO SCH (22:34)
[2018-04-29] MEDS: traZODone HCL 100 MG TABLET (FP) PO SCH (22:34)
[2018-04-30] MEDS: IBUPROFEN 400 MG TABLET (FP) PO PRN ×2 (04:32→10:49)
[2018-04-30] MEDS: chlordiazePOXIDE 5 MG CAPSULE PO SCH ×3 (05:31→17:01)
[2018-04-30] MEDS: GABAPENTIN 300 MG CAPSULE (FP) PO SCH ×3 (05:31→22:26)
[2018-04-30] MEDS: NICOTINE 21 MG/24 HOURS TOPICAL PATCH TD SCH (10:48)
[2018-04-30] MEDS: PRENATAL VITAMINS W/ FOLIC ACID TABLET (FP) PO SCH (10:48)
[2018-04-30] MEDS: hydrOXYzine PAMOATE 50 MG CAPSULE (FP) PO PRN (10:51)
[2018-04-30] MEDS: chlordiazePOXIDE HCL 25 MG CAPSULE PO PRN (12:52)
--- NOTE | 2018-04-30 17:09 | PN ---
[facility] Progress Note (SOAP) Subjective: Anxiety, tremors of hands, sweating, restlessness and nausea. Objective: Alert and oriented x 3. Respirations quiet and unlabored. Gait steady. CBCD WBC 5.9 K/mm3 (4.0-10.0) 04/28/18 07:00 RBC 4.46 M/mm3 (3.60-5.2) 04/28/18 07:00 Hgb 14.1 GM/dL (10.7-15.3) 04/28/18 07:00 Hct 41.6 % (32.4-45.2) 04/28/18 07:00 MCV 93.3 fl (80-96) 04/28/18 07:00 MCHC 33.9 g/dl (32.0-36.0) 04/28/18 07:00 RDW 13.1 % (11.6-15.6) 04/28/18 07:00 Plt Count 285 K/MM3 (134-434) D 04/28/18 07:00 MPV 7.8 fl (7.5-11.1) D 04/28/18 07:00 CMP Sodium 142 mmol/L (136-145) 04/28/18 07:00 Potassium 4.0 mmol/L (3.5-5.1) 04/28/18 07:00 Chloride 108 mmol/L (98-107) H 04/28/18 07:00 Carbon Dioxide 25 mmol/L (21-32) 04/28/18 07:00 Anion Gap 9 MMOL/L (8-16) 04/28/18 07:00 BUN 8 mg/dL (7-18) 04/28/18 07:00 Creatinine 0.6 mg/dL (0.55-1.02) 04/28/18 07:00 Creat Clearance w eGFR > 60 (>60) 04/28/18 07:00 Random Glucose 82 mg/dL (74-106) 04/28/18 07:00 Calcium 8.4 mg/dL (8.5-10.1) L 04/28/18 07:00 Total Bilirubin 0.4 mg/dL (0.2-1.0) 04/28/18 07:00 AST 13 U/L (15-37) L 04/28/18 07:00 ALT 19 U/L (12-78) 04/28/18 07:00 Alkaline Phosphatase 50 U/L (45-117) 04/28/18 07:00 Total Protein 6.3 g/dl (6.4-8.2) L 04/28/18 07:00 Albumin 3.2 g/dl (3.4-5.0) L 04/28/18 07:00 Labs reviewed. Vital Signs 04/30/18 04/30/18 10:00 15:31 Temperature 97.5 F L 97.5 F L Pulse Rate 78 101 H Respiratory 18 19 Rate Blood Pressure 110/69 122/60 04/30/18 17:06 Assessment: Withdrawal symptoms 04/30/18 17:07 Plan: Continue detox protocol.
[2018-04-30] MEDS ORDERED: ONDANSETRON 8 MG TABLET (FP) PO ONE (17:12)
[2018-04-30] MEDS: THIAMINE HCL 100 MG TABLET (FP) PO SCH (22:26)
[2018-04-30] MEDS: chlordiazePOXIDE HCL 10 MG CAPSULE PO SCH (22:26)
[2018-04-30] MEDS: PANTOPRAZOLE 20 MG TABLET (FP) PO SCH (22:26)
[2018-04-30] MEDS: traZODone HCL 100 MG TABLET (FP) PO SCH (22:26)
[2018-05-01] MEDS: chlordiazePOXIDE HCL 10 MG CAPSULE PO SCH (05:49)
[2018-05-01] MEDS: GABAPENTIN 300 MG CAPSULE (FP) PO SCH (08:13)
--- NOTE | 2018-05-01 08:43 | PN ---
[facility] Progress Note (SOAP) Subjective: interrupted sleep Objective: 05/01/18 08:40 Vital Signs Temperature 96.8 F L 05/01/18 07:51 Pulse Rate 77 05/01/18 07:51 Respiratory Rate 18 05/01/18 07:51 Blood Pressure 112/64 05/01/18 07:51 O2 Sat by Pulse Oximetry (%) 05/01/18 08:40 Laboratory Tests 04/27/18 04/28/18 04/28/18 20:45 07:00 07:00 WBC 5.9 RBC 4.46 Hgb 14.1 Hct 41.6 MCV 93.3 MCH 31.6 MCHC 33.9 RDW 13.1 Plt Count 285 D MPV 7.8 D Sodium Potassium Chloride Carbon Dioxide Anion Gap BUN Creatinine Creat Clearance w eGFR Random Glucose Calcium Total Bilirubin AST ALT Alkaline Phosphatase Total Protein Albumin Urine Color Ltyellow Urine Appearance Clear Urine pH 6.0 Ur Specific [place] 1.016 Urine Protein Negative Urine Glucose (UA) Negative Urine Ketones Negative Urine Blood 2+ H Urine Nitrite Negative Urine Bilirubin Negative Urine Urobilinogen Negative Ur Leukocyte Esterase Negative Urine WBC (Auto) 1 Urine RBC (Auto) 50 Urine Mucus Rare RPR Titer HIV 1&2 Antibody Screen Negative HIV P24 Antigen Negative 04/28/18 04/28/18 07:00 07:00 WBC RBC Hgb Hct MCV MCH MCHC RDW Plt Count MPV Sodium 142 Potassium 4.0 Chloride 108 H Carbon Dioxide 25 Anion Gap 9 BUN 8 Creatinine 0.6 Creat Clearance w eGFR > 60 Random Glucose 82 Calcium 8.4 L Total Bilirubin 0.4 AST 13 L ALT 19 Alkaline Phosphatase 50 Total Protein 6.3 L Albumin 3.2 L Urine Color Urine Appearance Urine pH Ur Specific [place] Urine Protein Urine Glucose (UA) Urine Ketones Urine Blood Urine Nitrite Urine Bilirubin Urine Urobilinogen Ur Leukocyte Esterase Urine WBC (Auto) Urine RBC (Auto) Urine Mucus RPR Titer Nonreactive HIV 1&2 Antibody Screen HIV P24 Antigen pt aox3 in nad ambulating Assessment: 05/01/18 08:42 withdrawal sx;s Plan: detox completed d/c today increase fluids
--- NOTE | 2018-05-01 08:45 | DS ---
[facility] Detox Discharge Summary Admission Date: 04/27/18 Discharge Date: 05/01/18 - History Present History: Alcohol Dependence, Cannabis Dependence, Cocaine Dependence - Physical Exam Results Vital Signs: Vital Signs Temperature 96.8 F L 05/01/18 07:51 Pulse Rate 77 05/01/18 07:51 Respiratory Rate 18 05/01/18 07:51 Blood Pressure 112/64 05/01/18 07:51 O2 Sat by Pulse Oximetry (%) - Treatment Hospital Course: Detox Protocol Followed, Detoxed Safely, Responded well, Discharged Condition Good - Medication Discharge Medications: Ambulatory Orders Gabapentin [Neurontin -] 300 mg PO Q8H 02/24/18 Trazodone HCl 150 mg PO HS 02/24/18 - Diagnosis (1) Alcohol dependence with withdrawal Current Visit: Yes Status: Chronic Qualifiers: Complication of substance-induced condition: uncomplicated Qualified Code(s ): F10.230 - Alcohol dependence with withdrawal, uncomplicated (2) Asthma Current Visit: Yes Status: Chronic Qualifiers: Asthma severity: mild (3) Cocaine dependence Current Visit: Yes Status: Chronic Qualifiers: Substance use status: uncomplicated Qualified Code(s): F14.20 - Cocaine dependence, uncomplicated (4) Marijuana dependence Current Visit: No Status: Acute - AMA Did Patient Leave Against Medical Advice: No
[2018-05-01] MEDS: PRENATAL VITAMINS W/ FOLIC ACID TABLET (FP) PO SCH (09:25)
[2018-05-01] MEDS: PANTOPRAZOLE 20 MG TABLET (FP) PO SCH (09:25)
[2018-05-01] MEDS: NICOTINE 21 MG/24 HOURS TOPICAL PATCH TD SCH (09:26)
[2018-05-01 09:37] VITALS: BP 152/97; PULSE 119; TEMP 97.3
== END 2018-05-01 09:30 | disposition home or self-care (01) | DRG 774 ==
LOC: YASAS 16:01 → Y6N 17:46
PROVIDERS: ADMIT Surgery; ATTEND Surgery
PROC: HZ2ZZZZ Detoxification Services for Substance Abuse Treatment (ICD-10-PCS; principal; 2018-04-27)
DX: F10.230 Alcohol dependence with withdrawal, uncomplicated (principal); F14.20 Cocaine dependence, uncomplicated; F12.20 Cannabis dependence, uncomplicated; F17.213 Nicotine dependence, cigarettes, with withdrawal; F32.9 Major depressive disorder, single episode, unspecified; F19.24 Other psychoactive substance dependence with psychoactive substance-induced mood disorder; F19.282 Other psychoactive substance dependence with psychoactive substance-induced sleep disorder; J45.909 Unspecified asthma, uncomplicated
CPT/HCPCS: 36415; 80053; 81003; 81015; 85027; 86593; 87389; 93005; 93010

== ENCOUNTER 2020-05-22 15:00 | Inpatient (IN) | payer OTHER ==
--- NOTE | 2020-05-22 15:38 | BHS.RME ---
Substance Use & Tx History - Substance Use History Alcohol Substance amount: 2 pints vodka Frequency of use: Daily Substance route: Oral Date of Last Use: 05/22/20 Cocaine-Crack Substance amount: $100 Frequency of use: Daily Substance route: Smoking Date of Last Use: 05/15/20 Marijuana/Hashish Substance amount: 2 blunts Frequency of use: Daily Substance route: Smoking Date of Last Use: 05/22/20 Nicotine Substance amount: 1/2 pack Frequency of use: Daily Substance route: Smoking Date of Last Use: 05/22/20 Physical/Psych/Mental Status - Behavior General Behavior: Increased activity (restlessness, agitation) Eye Contact: Normal - Cooperativeness Cooperativeness: Cooperative - Thinking Thought Processes: Tight, Logical, Goal Directed Thought content: Future oriented - Physical Health Problems Is patient presently having any pain?: No Does patient presently have any injuries (include location): No Does patient currently have a fever: No Is patient : No CIWA Nausea/Vomitin Muscle Tremors: 3 Anxiety: 4-Mod. Anxious/Guarded Agitation: 4-Moderately Restless Paroxysmal Sweats: 3 Orientation: 1-Uncertain about Date Tacttile Disturbances: 0-None Auditory Disturbances: 0-None Visual Disturbances: 0-None Headache: 0-None Present CIWA-Ar Total Score: 20
--- NOTE | 2020-05-22 15:43 | HP ---
CIWA Score Nausea/Vomitin Muscle Tremors: 3 Anxiety: 4-Mod. Anxious/Guarded Agitation: 4-Moderately Restless Paroxysmal Sweats: 3 Orientation: 1-Uncertain about Date Tacttile Disturbances: 0-None Auditory Disturbances: 0-None Visual Disturbances: 0-None Headache: 0-None Present CIWA-Ar Total Score: 20 - Admission Criteria [facility]ASAS Guidelines: Admission for Medically Managed Detox: Requires at least one of the followin. CIWA greater than 12 2. Seizures within the past 24 hours 3. Delirium tremens within the past 24 hours 4. Hallucinations within the past 24 hours 5. Acute intervention needed for co occurring medical disorder 6. Acute intervention needed for co occurring psychiatric disorder 7. Severe withdrawal that cannot be handled at a lower level of care (continued vomiting, continued diarrhea, abnormal vital signs) requiring intravenous medication and/or fluids 8. Admitting History and Physical - Admission Chief Complaint: Ms. Tucker is a 40 yo woman who presents to [facility] requesting detox for alcohol use disorder. History of Present Illness: Ms. Tucker is a 40 yo woman who presents to [facility] requesting detox for alcohol use disorder. She was last here between April 27 and May 01, 2018 for detox. She is court mandated to treatment. 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 Cocaine-Crack Substance amount: $100 Frequency of use: Daily Substance route: Smoking Date of Last Use: 05/15/20 Began age 16 y Marijuana/Hashish Substance amount: 2 blunts Frequency of use: Daily Substance route: Smoking Date of Last Use: 05/22/20 Began age 16 y Nicotine Substance amount: 1/2 pack Frequency of use: Daily Substance route: Smoking Date of Last Use: 05/22/20 Began age 16 y No: methadone, Suboxone History Source: Patient Limitations to Obtaining History: No Limitations - Past Medical History ...LMP: 04/27/18 - Smoking History Smoking history: Current every day smoker Have you smoked in the past 12 months: Yes Aproximately how many cigarettes per day: 20 - Alcohol/Substance Use Hx Alcohol Use: Yes Admission ROS BHS - HPI Allergies/Adverse Reactions: Allergies Allergy/AdvReac Type Severity Reaction Status Date / Time Fish Containing Products Allergy Severe Swelling Verified 02/24/18 13:43 mushroom Allergy Severe Hives Verified 04/27/18 17:08 Exam Limitations: No Limitations - Ebola screening Have you traveled outside of the country in the last 21 days: No Have you been sick,other than usual withdrawal symptoms: No Do you have a fever: No - Review of Systems Constitutional: No Symptoms Reported EENT: reports: No Symptoms Reported Respiratory: reports: No Symptoms reported Cardiac: reports: No Symptoms Reported GI: reports: Nausea : reports: No Symptoms Reported Musculoskeletal: reports: No Symptoms Reported Integumentary: reports: No Symptoms Reported Neuro: reports: No Symptoms reported Endocrine: reports: No Symptoms Reported Hematology: reports: No Symptoms Reported Psychiatric: reports: Anxious Patient History - Patient Medical History Hx Anemia: No Hx Asthma: Yes Hx Chronic Obstructive Pulmonary Disease (COPD): No Hx Cancer: No Hx Cardiac Disorders: No Hx Congestive Heart Failure: No Hx Hypertension: No Hx Hypercholesterolemia: No Hx Pacemaker: No HX Cerebrovascular Accident: No Hx Seizures: No Hx Diabetes: No Hx Gastrointestinal Disorders: No Hx Liver Disease: No Hx Genitourinary Disorders: No Hx Sexually Transmitted Disorders: No Hx Renal Disease (ESRD): No Hx Thyroid Disease: No Hx Human Immunodeficiency Virus (HIV): No (negative) Hx Hepatitis C: No (negative) Hx Depression: Yes Hx Suicide Attempt: No Hx Bipolar Disorder: No Hx Schizophrenia: No - Patient Surgical History Past Surgical History: No Hx Neurologic Surgery: No Hx Cataract Extraction: No Hx Cardiac Surgery: No Hx Lung Surgery: No Hx Breast Surgery: No Hx Breast Biopsy: No Hx Abdominal Surgery: No Hx Appendectomy: No Hx Cholecystectomy: No Hx Genitourinary Surgery: No Hx Section: No Hx Orthopedic Surgery: No Anesthesia Reaction: No - PPD History Date: 02/26/18 - Reproductive History Last Menstrual Period: 04/27/18 - Smoking Cessation Smoking history: Current every day smoker Have you smoked in the past 12 months: Yes Aproximately how many cigarettes per day: 10 Hx Chewing Tobacco Use: No Initiated information on smoking cessation: Yes 'Breaking Loose' booklet given: 05/22/20 Admission Physical Exam BHS - Vital Signs Vital Signs: BP 89/60, HR 80, RR 18, temp 97.5 UDS: THC, negative for - Physical General Appearance: Yes: No Apparent Distress, Nourished, Intoxicated HEENTM: Yes: EOMI, Hearing grossly Normal, Normocephalic, Normal Voice Respiratory: Yes: Lungs Clear, No Respiratory Distress, No Accessory Muscle Use Neck: Yes: Within Normal Limits, Supple Breast: Yes: Breast Exam Deferred Cardiology: Yes: Regular Rhythm, Regular Rate Abdominal: Yes: Normal Bowel Sounds, Non Tender, Flat, Soft Genitourinary: Yes: Other (deferred) Back: Yes: Normal Inspection Musculoskeletal: Yes: Gait Steady Extremities: Yes: Normal Inspection, Non-Tender Neurological: Yes: Alert, Normal Response Integumentary: Yes: Normal Color, Dry, Warm - Diagnostic (1) Cannabis abuse Current Visit: Yes Status: Acute Comment: 1. Substance use disorder education (2) Bipolar 1 disorder Current Visit: Yes Status: Acute Comment: 1. Psychiatry consultation , pt off meds for months, med management (3) Marijuana dependence Current Visit: No Status: Acute Comment: 1. Substance use education (4) Alcohol dependence with withdrawal Current Visit: No Status: Chronic Qualifiers: Complication of substance-induced condition: uncomplicated Qualified Code(s): F10.230 - Alcohol dependence with withdrawal, uncomplicated Comment: 1. Admit alcohol detox protocol 2. routine labs 3. comfort meds (5) Nicotine dependence unspecified, with withdrawal Current Visit: No Status: Chronic Qualifiers: Nicotine product type: cigarettes Qualified Code(s): F17.213 - Nicotine dependence, cigarettes, with withdrawal Comment: 1. nicotine replacement therapy Cleared for Admission [facility] - Detox or Rehab [facility] Level of Care: Medically Managed Detox Regimen/Protocol: Librium Inpatient Rehab Admission - Rehab Decision to Admit Inpatient rehab admission?: No
[2020-05-22] MEDS ORDERED: IBUPROFEN 400 MG TABLET (FP) PO PRN (15:44)
[2020-05-22] MEDS ORDERED: MENTHOL/PHENOL 1 EACH UD MM PRN (15:44)
[2020-05-22] MEDS ORDERED: ONDANSETRON *ODT* 4 MG TABLET SL PRN (15:44)
[2020-05-22] MEDS ORDERED: BISMUTH SUBSALICYLATE 524 MG/30 ML UD PO PRN (15:44)
[2020-05-22] MEDS ORDERED: MAG HYDROX/AL HYDROX/SIMETH 30 ML UNIT-DOSE CUP PO PRN (15:44)
[2020-05-22] MEDS ORDERED: MAGNESIUM CITRATE 300 ML BOTTLE PO PRN (15:44)
[2020-05-22] MEDS ORDERED: chlordiazePOXIDE HCL 25 MG CAPSULE PO PRN (15:44)
[2020-05-22] MEDS ORDERED: MAGNESIUM HYDROX 2400MG/30ML ORAL SUSPENSION 30 ML CUP PO PRN (15:44)
[2020-05-22] MEDS ORDERED: ACETAMINOPHEN 325 MG TABLET (FP) PO PRN ×2 (15:44)
[2020-05-22 17:07] VITALS: BMI 27.6
[2020-05-22] MEDS: chlordiazePOXIDE HCL 25 MG CAPSULE PO SCH ×2 (17:43→22:19)
[2020-05-22] MEDS: NICOTINE POLACRILEX 2 MG GUM BUC PRN (17:43)
[2020-05-22] MEDS: NICOTINE 14 MG/24 HOURS TOPICAL PATCH TD SCH (17:48)
[2020-05-22] MEDS: hydrOXYzine PAMOATE 25 MG CAPSULE (FP) PO SCH ×2 (22:12→22:19)
[2020-05-22] MEDS: THIAMINE HCL 100 MG TABLET (FP) PO SCH (22:19)
[2020-05-22] MEDS: MELATONIN 5 MG TABLETS PO SCH (22:19)
[2020-05-23] MEDS: hydrOXYzine PAMOATE 25 MG CAPSULE (FP) PO SCH ×2 (06:49→09:47)
[2020-05-23] MEDS: chlordiazePOXIDE HCL 25 MG CAPSULE PO SCH ×4 (06:49→22:04)
[2020-05-23] MEDS: NICOTINE POLACRILEX 2 MG GUM BUC PRN (06:50)
[2020-05-23] MEDS: NICOTINE 14 MG/24 HOURS TOPICAL PATCH TD SCH (09:46)
[2020-05-23] MEDS: PRENATAL VITAMINS W/ FOLIC ACID TABLET (FP) PO SCH (09:47)
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
[2020-05-23 10:38] LABS: HEMATOCRIT 38.4 % (32.4-45.2); HEMOGLOBIN 12.7 GM/dL (10.7-15.3); MCH 30.6 pg (25.7-33.7); MCHC 32.9 g/dl (32.0-36.0); PLATELET COUNT 304 K/MM3 (134-434); RBC 4.13 M/mm3 (3.60-5.2); WHITE BLOOD COUNT 7.2 K/mm3 (4.0-10.0)
[2020-05-23 10:58] LABS: ALBUMIN 3.1 g/dl (3.4-5.0); BILIRUBIN,TOTAL 0.6 mg/dL (0.2-1); BLOOD UREA NITROGEN 7.8 mg/dL (7-18); CALCIUM 8.7 mg/dL (8.5-10.1); CREATININE 0.6 mg/dL (0.55-1.3); POTASSIUM 4.2 mmol/L (3.5-5.1); TOT PROT 6.5 g/dl (6.4-8.2)
--- NOTE | 2020-05-23 12:30 | PN ---
S CIWA - CIWA Score Nausea/Vomitin-No Nausea/No Vomiting Muscle Tremors: 3 Anxiety: 3 Agitation: 3 Paroxysmal Sweats: 3 Orientation: 0-Oriented Tacttile Disturbances: 0-None Auditory Disturbances: 0-None Visual Disturbances: 0-None Headache: 0-None Present CIWA-Ar Total Score: 12 BHS Progress Note (SOAP) Subjective: sweats shakes body aches interrupted sleep anxiety Objective: 05/23/20 12:30 Vital Signs Temperature 97.7 F 05/22/20 21:01 Pulse Rate 77 05/22/20 21:01 Respiratory Rate 16 05/22/20 21:01 Blood Pressure 105/69 05/22/20 21:01 O2 Sat by Pulse Oximetry (%) 100 05/22/20 21:01 Laboratory Tests 05/22/20 05/23/20 05/23/20 15:54 08:00 08:00 WBC 7.2 RBC 4.13 Hgb 12.7 Hct 38.4 MCV 93.0 MCH 30.6 MCHC 32.9 RDW 14.0 Plt Count 304 MPV 8.0 Sodium 138 Potassium 4.2 Chloride 106 Carbon Dioxide 28 Anion Gap 4 L BUN 7.8 Creatinine 0.6 Est GFR (CKD-EPI)AfAm 134.01 Est GFR (CKD-EPI)NonAf 115.63 Random Glucose 75 Calcium 8.7 Total Bilirubin 0.6 AST 10 L ALT 14 Alkaline Phosphatase 49 Total Protein 6.5 Albumin 3.1 L POC Urine HCG, Qual Negative labs noted aaox3 ambulating no acute distress Assessment: 05/23/20 12:30 withdrawals Plan: continue detox increase fluids
[2020-05-23] MEDS: hydrOXYzine PAMOATE 25 MG CAPSULE (FP) PO PRN (21:46)
[2020-05-23] MEDS: MELATONIN 5 MG TABLETS PO SCH (22:04)
[2020-05-23] MEDS: THIAMINE HCL 100 MG TABLET (FP) PO SCH (22:04)
[2020-05-23] MEDS: traZODone HCL 50 MG TABLET (FP) PO SCH (22:04)
[2020-05-24] MEDS: chlordiazePOXIDE HCL 25 MG CAPSULE PO SCH ×4 (06:08→22:29)
[2020-05-24] MEDS: hydrOXYzine PAMOATE 25 MG CAPSULE (FP) PO PRN ×2 (06:11→18:05)
--- NOTE | 2020-05-24 09:56 | PN ---
[facility] CIWA - CIWA Score Nausea/Vomitin-No Nausea/No Vomiting Muscle Tremors: 2 Anxiety: 2 Agitation: 2 Paroxysmal Sweats: 2 Orientation: 0-Oriented Tacttile Disturbances: 0-None Auditory Disturbances: 0-None Visual Disturbances: 0-None Headache: 0-None Present CIWA-Ar Total Score: 8 S Progress Note (SOAP) Subjective: Complaints of tremors, agitation, sweats and agitation. Objective: 05/24/20 09:54 Vital Signs 05/24/20 05:58 Temperature 97.1 F L Pulse Rate 88 Respiratory 20 Rate Blood Pressure 109/75 O2 Sat by Pulse 98 Oximetry (%) Laboratory Last Values WBC 7.2 K/mm3 (4.0-10.0) 05/23/20 08:00 RBC 4.13 M/mm3 (3.60-5.2) 05/23/20 08:00 Hgb 12.7 GM/dL (10.7-15.3) 05/23/20 08:00 Hct 38.4 % (32.4-45.2) 05/23/20 08:00 MCV 93.0 fl (80-96) 05/23/20 08:00 MCH 30.6 pg (25.7-33.7) 05/23/20 08:00 MCHC 32.9 g/dl (32.0-36.0) 05/23/20 08:00 RDW 14.0 % (11.6-15.6) 05/23/20 08:00 Plt Count 304 K/MM3 (134-434) 05/23/20 08:00 MPV 8.0 fl (7.5-11.1) 05/23/20 08:00 Sodium 138 mmol/L (136-145) 05/23/20 08:00 Potassium 4.2 mmol/L (3.5-5.1) 05/23/20 08:00 Chloride 106 mmol/L (98-107) 05/23/20 08:00 Carbon Dioxide 28 mmol/L (21-32) 05/23/20 08:00 Anion Gap 4 MMOL/L (8-16) L 05/23/20 08:00 BUN 7.8 mg/dL (7-18) 05/23/20 08:00 Creatinine 0.6 mg/dL (0.55-1.3) 05/23/20 08:00 Est GFR (CKD-EPI)AfAm 134.01 05/23/20 08:00 Est GFR (CKD-EPI)NonAf 115.63 05/23/20 08:00 Random Glucose 75 mg/dL (74-106) 05/23/20 08:00 Calcium 8.7 mg/dL (8.5-10.1) 05/23/20 08:00 Total Bilirubin 0.6 mg/dL (0.2-1) 05/23/20 08:00 AST 10 U/L (15-37) L 05/23/20 08:00 ALT 14 U/L (13-61) 05/23/20 08:00 Alkaline Phosphatase 49 U/L (45-117) 05/23/20 08:00 Total Protein 6.5 g/dl (6.4-8.2) 05/23/20 08:00 Albumin 3.1 g/dl (3.4-5.0) L 05/23/20 08:00 POC Urine HCG, Qual Negative 05/22/20 15:54 Syphilis Serology Non-reactive (NONREACTIVE) 05/23/20 08:00 COVID-19 (TOMMY) Not detected (Not Detected) 05/22/20 17:00 Labs notes. Assessment: 05/24/20 09:55 Alert and oriented x 3, in no acute distress. Full ROM, ambulating in the unit without assistance. Skin was to touch with any lesions. Withdrawal symptoms. Plan: Continue detox protocol.
[2020-05-24] MEDS: PRENATAL VITAMINS W/ FOLIC ACID TABLET (FP) PO SCH (10:27)
[2020-05-24] MEDS: NICOTINE 14 MG/24 HOURS TOPICAL PATCH TD SCH (10:27)
[2020-05-24] MEDS: NICOTINE POLACRILEX 2 MG GUM BUC PRN (19:10)
[2020-05-24] MEDS: THIAMINE HCL 100 MG TABLET (FP) PO SCH (22:29)
[2020-05-24] MEDS: traZODone HCL 50 MG TABLET (FP) PO SCH (22:29)
[2020-05-24] MEDS: MELATONIN 5 MG TABLETS PO SCH (22:29)
[2020-05-25] MEDS ORDERED: chlordiazePOXIDE HCL 10 MG CAPSULE PO PRN
[2020-05-25] MEDS: chlordiazePOXIDE HCL 10 MG CAPSULE PO SCH ×4 (06:14→22:03)
[2020-05-25] MEDS: PRENATAL VITAMINS W/ FOLIC ACID TABLET (FP) PO SCH (11:13)
[2020-05-25] MEDS: NICOTINE 14 MG/24 HOURS TOPICAL PATCH TD SCH (11:13)
--- NOTE | 2020-05-25 18:09 | PN ---
[facility] CIWA - CIWA Score Nausea/Vomitin-No Nausea/No Vomiting Muscle Tremors: None Anxiety: 2 Agitation: 2 Paroxysmal Sweats: 2 Orientation: 0-Oriented Tacttile Disturbances: 0-None Auditory Disturbances: 0-None Visual Disturbances: 0-None Headache: 0-None Present CIWA-Ar Total Score: 6 BHS Progress Note (SOAP) Subjective: Lots of sweating Objective: 05/25/20 18:07 Last Vital Signs Temp Pulse Resp BP Pulse Ox 98.2 F 73 18 110/69 100 05/25/20 12:48 05/25/20 12:48 05/25/20 12:48 05/25/20 12:48 05/25/20 09:47 Laboratory Tests 05/22/20 05/22/20 05/23/20 15:54 17:00 08:00 WBC RBC Hgb Hct MCV MCH MCHC RDW Plt Count MPV Sodium Potassium Chloride Carbon Dioxide Anion Gap BUN Creatinine Est GFR (CKD-EPI)AfAm Est GFR (CKD-EPI)NonAf Random Glucose Calcium Total Bilirubin AST ALT Alkaline Phosphatase Total Protein Albumin POC Urine HCG, Qual Negative Syphilis Serology Non-reactive COVID-19 (TOMMY) Not detected 05/23/20 05/23/20 08:00 08:00 WBC 7.2 RBC 4.13 Hgb 12.7 Hct 38.4 MCV 93.0 MCH 30.6 MCHC 32.9 RDW 14.0 Plt Count 304 MPV 8.0 Sodium 138 Potassium 4.2 Chloride 106 Carbon Dioxide 28 Anion Gap 4 L BUN 7.8 Creatinine 0.6 Est GFR (CKD-EPI)AfAm 134.01 Est GFR (CKD-EPI)NonAf 115.63 Random Glucose 75 Calcium 8.7 Total Bilirubin 0.6 AST 10 L ALT 14 Alkaline Phosphatase 49 Total Protein 6.5 Albumin 3.1 L POC Urine HCG, Qual Syphilis Serology COVID-19 (TOMMY) Labs reviewed: hypoalbuminemia noted Assessment: 05/25/20 18:08 Withdrawal sxs Hypoalbuminemia noted Plan: Continue detox Encourage PO water intake Hypoalbuminemia: encourage diet
[2020-05-25] MEDS: METHOCARBAMOL 500 MG TABLET PO PRN (20:12)
[2020-05-25] MEDS: hydrOXYzine PAMOATE 25 MG CAPSULE (FP) PO PRN (20:12)
[2020-05-25] MEDS: traZODone HCL 50 MG TABLET (FP) PO SCH (22:02)
[2020-05-25] MEDS: MELATONIN 5 MG TABLETS PO SCH (22:03)
[2020-05-25] MEDS: THIAMINE HCL 100 MG TABLET (FP) PO SCH (22:05)
[2020-05-26] MEDS: chlordiazePOXIDE HCL 10 MG CAPSULE PO SCH ×2 (06:15→17:59)
[2020-05-26] MEDS: hydrOXYzine PAMOATE 25 MG CAPSULE (FP) PO PRN ×2 (06:16→11:15)
[2020-05-26] MEDS: PRENATAL VITAMINS W/ FOLIC ACID TABLET (FP) PO SCH (11:12)
[2020-05-26] MEDS: NICOTINE 14 MG/24 HOURS TOPICAL PATCH TD SCH (11:12)
[2020-05-26] MEDS: METHOCARBAMOL 500 MG TABLET PO PRN (11:15)
--- NOTE | 2020-05-26 13:52 | PN ---
S CIWA - CIWA Score Nausea/Vomitin-No Nausea/No Vomiting Muscle Tremors: 2 Anxiety: 1-Mildly Anxious Agitation: 0-Normal Activity Paroxysmal Sweats: No Perspiration Orientation: 0-Oriented Tacttile Disturbances: 0-None Auditory Disturbances: 0-None Visual Disturbances: 0-None Headache: 0-None Present CIWA-Ar Total Score: 3 BHS Progress Note (SOAP) Subjective: feeling better little anxiety Objective: 05/26/20 13:51 Vital Signs Temperature 97.7 F 05/26/20 12:30 Pulse Rate 103 H 05/26/20 12:30 Respiratory Rate 16 05/26/20 12:30 Blood Pressure 133/58 L 05/26/20 12:30 O2 Sat by Pulse Oximetry (%) 98 05/26/20 12:30 Laboratory Tests 05/22/20 05/22/20 05/23/20 15:54 17:00 08:00 WBC RBC Hgb Hct MCV MCH MCHC RDW Plt Count MPV Sodium Potassium Chloride Carbon Dioxide Anion Gap BUN Creatinine Est GFR (CKD-EPI)AfAm Est GFR (CKD-EPI)NonAf Random Glucose Calcium Total Bilirubin AST ALT Alkaline Phosphatase Total Protein Albumin POC Urine HCG, Qual Negative Syphilis Serology Non-reactive COVID-19 (TOMMY) Not detected 05/23/20 05/23/20 08:00 08:00 WBC 7.2 RBC 4.13 Hgb 12.7 Hct 38.4 MCV 93.0 MCH 30.6 MCHC 32.9 RDW 14.0 Plt Count 304 MPV 8.0 Sodium 138 Potassium 4.2 Chloride 106 Carbon Dioxide 28 Anion Gap 4 L BUN 7.8 Creatinine 0.6 Est GFR (CKD-EPI)AfAm 134.01 Est GFR (CKD-EPI)NonAf 115.63 Random Glucose 75 Calcium 8.7 Total Bilirubin 0.6 AST 10 L ALT 14 Alkaline Phosphatase 49 Total Protein 6.5 Albumin 3.1 L POC Urine HCG, Qual Syphilis Serology COVID-19 (TOMMY) labs noted aaox3 ambulating no acute distress Assessment: 05/26/20 13:51 mild withdrawals Plan: continue detox d/c in am
[2020-05-26] MEDS ORDERED: METHOCARBAMOL 750 MG TAB PO PRN (14:23)
[2020-05-26] MEDS: hydrOXYzine PAMOATE 50 MG CAPSULE (FP) PO PRN ×2 (15:13→22:26)
[2020-05-26] MEDS: traZODone HCL 50 MG TABLET (FP) PO SCH (22:26)
[2020-05-26] MEDS: MELATONIN 5 MG TABLETS PO SCH (22:27)
[2020-05-26] MEDS: THIAMINE HCL 100 MG TABLET (FP) PO SCH (22:27)
[2020-05-27] MEDS ORDERED: chlordiazePOXIDE HCL 10 MG CAPSULE PO ONE (05:00)
--- NOTE | 2020-05-27 09:07 | DS ---
[facility] Detox Discharge Summary Admission Date: 05/22/20 Discharge Date: 05/27/20 - History Present History: Alcohol Dependence, Cannabis Dependence, Cocaine Dependence - Physical Exam Results Vital Signs: Vital Signs Temperature 98 F 05/27/20 06:57 Pulse Rate 74 05/27/20 06:57 Respiratory Rate 18 05/27/20 06:57 Blood Pressure 112/59 L 05/27/20 06:57 O2 Sat by Pulse Oximetry (%) 94 L 05/27/20 06:57 Pertinent Admission Physical Exam Findings: Vital Signs Temperature 98 F 05/27/20 06:57 Pulse Rate 74 05/27/20 06:57 Respiratory Rate 18 05/27/20 06:57 Blood Pressure 112/59 L 05/27/20 06:57 O2 Sat by Pulse Oximetry (%) 94 L 05/27/20 06:57 Laboratory Tests 05/22/20 05/22/20 05/23/20 15:54 17:00 08:00 WBC RBC Hgb Hct MCV MCH MCHC RDW Plt Count MPV Sodium Potassium Chloride Carbon Dioxide Anion Gap BUN Creatinine Est GFR (CKD-EPI)AfAm Est GFR (CKD-EPI)NonAf Random Glucose Calcium Total Bilirubin AST ALT Alkaline Phosphatase Total Protein Albumin POC Urine HCG, Qual Negative Syphilis Serology Non-reactive COVID-19 (TOMMY) Not detected 05/23/20 05/23/20 08:00 08:00 WBC 7.2 RBC 4.13 Hgb 12.7 Hct 38.4 MCV 93.0 MCH 30.6 MCHC 32.9 RDW 14.0 Plt Count 304 MPV 8.0 Sodium 138 Potassium 4.2 Chloride 106 Carbon Dioxide 28 Anion Gap 4 L BUN 7.8 Creatinine 0.6 Est GFR (CKD-EPI)AfAm 134.01 Est GFR (CKD-EPI)NonAf 115.63 Random Glucose 75 Calcium 8.7 Total Bilirubin 0.6 AST 10 L ALT 14 Alkaline Phosphatase 49 Total Protein 6.5 Albumin 3.1 L POC Urine HCG, Qual Syphilis Serology COVID-19 (TOMMY) - Treatment Hospital Course: Detox Protocol Followed, Detoxed Safely, Responded well, Discha rged Condition Good, Rehab Referral Accepted - Medication Discharge Medications: Ambulatory Orders Gabapentin [Neurontin -] 300 mg PO Q8H 02/24/18 Trazodone HCl 150 mg PO HS 02/24/18 - Diagnosis (1) Bipolar 1 disorder Current Visit: Yes Status: Chronic (2) Cannabis dependence Current Visit: Yes Status: Chronic (3) Alcohol dependence with withdrawal Current Visit: Yes Status: Chronic Qualifiers: Complication of substance-induced condition: uncomplicated Qualified Code(s): F10.230 - Alcohol dependence with withdrawal, uncomplicated (4) Cocaine dependence Current Visit: Yes Status: Chronic Qualifiers: Substance use status: uncomplicated Qualified Code(s): F14.20 - Cocaine dependence, uncomplicated (5) Insomnia Current Visit: No Status: Acute (6) Substance-induced sleep disorder Current Visit: No Status: Acute (7) Asthma Current Visit: Yes Status: Chronic Qualifiers: Asthma severity: mild (8) Nicotine dependence unspecified, with withdrawal Current Visit: Yes Status: Chronic Qualifiers: Nicotine product type: cigarettes Qualified Code(s): F17.213 - Nicotine dependence, cigarettes, with withdrawal (9) Substance induced mood disorder Current Visit: No Status: Chronic - AMA Did Patient Leave Against Medical Advice: No
[2020-05-27] MEDS ORDERED: HYDROCORTISONE 0.5% TOPICAL CREAM 30 GM TUBE TP ONE (09:19)
[2020-05-27 09:39] VITALS: BP 145/74; PULSE 93; TEMP 98.7
[2020-05-27] MEDS: PRENATAL VITAMINS W/ FOLIC ACID TABLET (FP) PO SCH (10:51)
[2020-05-27] MEDS: NICOTINE 14 MG/24 HOURS TOPICAL PATCH TD SCH (10:51)
== END 2020-05-27 15:33 | disposition other institution (70) | DRG 774 ==
LOC: YASAS 15:00 → Y6N 16:31
PROVIDERS: ADMIT Allergy & Immunology; ATTEND Allergy & Immunology
PROC: HZ2ZZZZ Detoxification Services for Substance Abuse Treatment (ICD-10-PCS; principal; 2020-05-22)
DX: F10.230 Alcohol dependence with withdrawal, uncomplicated (principal); F14.20 Cocaine dependence, uncomplicated; F12.20 Cannabis dependence, uncomplicated; F17.213 Nicotine dependence, cigarettes, with withdrawal; F19.282 Other psychoactive substance dependence with psychoactive substance-induced sleep disorder; F19.24 Other psychoactive substance dependence with psychoactive substance-induced mood disorder; F31.9 Bipolar disorder, unspecified; E88.09 Other disorders of plasma-protein metabolism, not elsewhere classified; J45.20 Mild intermittent asthma, uncomplicated; G47.00 Insomnia, unspecified; Z59.0 Homelessness; Z56.0 Unemployment, unspecified; Z91.018 Allergy to other foods; Z91.013 Allergy to seafood
CPT/HCPCS: 36415; 80053; 81025; 85027; 86780; U0003

== ENCOUNTER 2020-05-27 14:53 | Inpatient (IN) | payer OTHER ==
--- NOTE | 2020-05-27 12:39 | HP ---
[facility] Rehab Assess/Revision - Admission History Ad[facility] - Findings Detox History & Physical reviewed: Yes Concur with findings: Yes Inpatient Rehab Admission - Rehab Decision to Admit Inpatient rehab admission?: Yes - Initial Determination Are CD services needed?: Yes Free of communicable disease: Yes Not in need of hospitalization: Yes - Rehab Admission Criteria Previous failed treatment: Yes Poor recovery environment: Yes Comorbidities: Yes Lacks judgement: Yes Patient is meeting Inpatient Rehab admission criteria:: Yes
--- NOTE | 2020-05-27 12:43 | PN ---
[facility] Progress Note Note: pt had her PPD read and results were negative, however, today pt shows the TB site is raised less than 5mm, pt denies having been exposed to TB in the past. But for safety precaution pt will have a chest x-ray ordered for tomorrow. there is no need for pt to go to [facility] for chest x-ray today. Pt is currently asymptomatic and completed her detox successfully. pt is scheduled for a chest x-ray tomorrow.
[~2020-05-27 14:53] MED LIST: ACETAMINOPHEN 325 MG TABLET (FP) PO PRN; HYDROCORTISONE 1% TOPICAL CREAM 30 GM TUBE TP PRN; IBUPROFEN 400 MG TABLET (FP) PO PRN; LOPERAMIDE HCL 2 MG CAPSULE PO PRN; MAG HYDROX/AL HYDROX/SIMETH 30 ML UNIT-DOSE CUP PO PRN; MAGNESIUM CITRATE 300 ML BOTTLE PO PRN; MAGNESIUM HYDROX 2400MG/30ML ORAL SUSPENSION 30 ML CUP PO PRN; MENTHOL/PHENOL 1 EACH UD MM PRN; P-EPHED 60MG/TRIPROLIDI 2.5MG TABLET PO PRN; guaiFENesin 200 MG/10 ML 10 ML UNIT-DOSE CUPS PO PRN
[2020-05-27] MEDS: hydrOXYzine PAMOATE 25 MG CAPSULE (FP) PO PRN ×2 (17:06→21:13)
[2020-05-27] MEDS ORDERED: MASKS NR ONE (18:38)
[2020-05-27] MEDS: THIAMINE HCL 100 MG TABLET (FP) PO SCH (21:12)
[2020-05-27] MEDS: MELATONIN 5 MG TABLETS PO SCH (21:13)
[2020-05-27] MEDS: HYDROCORTISONE 1% TOPICAL CREAM 30 GM TUBE TP SCH (21:15)
[2020-05-27] MEDS ORDERED: PT OWN MED DRAWER 7, Y5N ONE (21:16)
[2020-05-27] MEDS ORDERED: traZODone HCL 50 MG TABLET (FP) PO SCH (22:00)
[2020-05-28] MEDS: hydrOXYzine PAMOATE 25 MG CAPSULE (FP) PO PRN ×4 (06:21→21:28)
[2020-05-28] MEDS: NICOTINE POLACRILEX 2 MG GUM BUC PRN ×2 (09:52→15:05)
[2020-05-28] MEDS: PRENATAL VITAMINS W/ FOLIC ACID TABLET (FP) PO SCH (09:52)
[2020-05-28] MEDS: NICOTINE 21 MG/24 HOURS TOPICAL PATCH TD SCH (09:53)
[2020-05-28] MEDS: HYDROCORTISONE 1% TOPICAL CREAM 30 GM TUBE TP SCH ×2 (10:58→21:31)
[2020-05-28] MEDS: THIAMINE HCL 100 MG TABLET (FP) PO SCH (21:28)
[2020-05-28] MEDS: MELATONIN 5 MG TABLETS PO SCH (21:29)
[2020-05-28] MEDS: traZODone HCL 50 MG TABLET (FP) PO SCH (21:30)
[2020-05-29] MEDS: hydrOXYzine PAMOATE 25 MG CAPSULE (FP) PO PRN ×4 (06:23→21:26)
--- NOTE | 2020-05-29 08:06 | PN ---
S Progress Note Note: Patient CXR is clear, shows no pathology.
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
[2020-05-29] MEDS: PRENATAL VITAMINS W/ FOLIC ACID TABLET (FP) PO SCH (09:44)
[2020-05-29] MEDS: HYDROCORTISONE 1% TOPICAL CREAM 30 GM TUBE TP SCH ×2 (09:44→21:27)
[2020-05-29] MEDS: NICOTINE 21 MG/24 HOURS TOPICAL PATCH TD SCH (09:44)
[2020-05-29] MEDS: FLUoxetine HCL 20 MG CAPSULE PO SCH (10:42)
[2020-05-29] MEDS: NICOTINE POLACRILEX 2 MG GUM BUC PRN (17:32)
[2020-05-29] MEDS: THIAMINE HCL 100 MG TABLET (FP) PO SCH (21:26)
[2020-05-29] MEDS: traZODone HCL 50 MG TABLET (FP) PO SCH (21:27)
[2020-05-29] MEDS: MELATONIN 5 MG TABLETS PO SCH (21:28)
[2020-05-29] MEDS ORDERED: PRAZOSIN HCL 1 MG CAPSULE PO SCH ×2 (22:00)
[2020-05-29] MEDS ORDERED: SUVOREXANT 10 MG TABLET PO PRN (22:00)
[2020-05-30] MEDS: hydrOXYzine PAMOATE 25 MG CAPSULE (FP) PO PRN ×2 (06:24→17:35)
[2020-05-30 07:03] VITALS: BP 108/76; PULSE 88; TEMP 97
[2020-05-30] MEDS: FLUoxetine HCL 20 MG CAPSULE PO SCH (09:38)
[2020-05-30] MEDS: PRENATAL VITAMINS W/ FOLIC ACID TABLET (FP) PO SCH (09:38)
[2020-05-30] MEDS: HYDROCORTISONE 1% TOPICAL CREAM 30 GM TUBE TP SCH (09:39)
[2020-05-30] MEDS: NICOTINE 21 MG/24 HOURS TOPICAL PATCH TD SCH (09:39)
[2020-05-30] MEDS: NICOTINE POLACRILEX 2 MG GUM BUC PRN (14:15)
--- NOTE | 2020-05-30 18:11 | DS ---
[facility] Rehab Discharge Summary - [facility] Rehab Discharge Summary Admission Date: 05/27/20 Discharge Date: 05/30/20 - History Present History: Alcohol dependence Pertinent Past History: pt completed alcohol detox. Was given treatment for insomnia, bipolar and depression. Vital Signs - 24 hr 05/29/20 05/30/20 05/30/20 20:34 06:25 13:11 Temperature 97.3 F L 97 F L Pulse Rate 71 88 Respiratory 18 18 Rate Blood Pressure 112/76 108/76 O2 Sat by Pulse 96 96 99 Oximetry (%) f/u with [facility] and has access to other outpt treatment. Has PCP in [place]. Dr. King. - Discharge Physical Exam Vital Signs: Vital Signs Temperature 97 F L 05/30/20 06:25 Pulse Rate 88 05/30/20 06:25 Respiratory Rate 18 05/30/20 06:25 Blood Pressure 108/76 05/30/20 06:25 O2 Sat by Pulse Oximetry (%) 99 05/30/20 13:11 - Treatment Discharge Condition: Discharge condition good - Medication Discharge Medications: Ambulatory Orders Gabapentin [Neurontin -] 300 mg PO Q8H 02/24/18 Trazodone HCl 150 mg PO HS 02/24/18 - Medication-Assisted Treatment (MAT) Medication-Assisted Treatment (MAT): No - Discharge Instructions Diet, activity, other medical instructions: Diet: Activity: Other medical instructions: - Diagnosis (1) Alcohol use disorder Current Visit: Yes Status: Acute - Follow-up Referral Minutes to complete discharge: 30 - AMA Did Patient Leave Against Medical Advice: No
== END 2020-05-30 19:45 | disposition home or self-care (01) | DRG 772 ==
LOC: YASAS 14:53 → Y3E 14:55
PROVIDERS: ADMIT Allergy & Immunology; ATTEND Allergy & Immunology
PROC: HZ42ZZZ Group Counseling for Substance Abuse Treatment, Cognitive-Behavioral (ICD-10-PCS; principal; 2020-05-27)
DX: F10.20 Alcohol dependence, uncomplicated (principal); F14.20 Cocaine dependence, uncomplicated; F12.20 Cannabis dependence, uncomplicated; F17.210 Nicotine dependence, cigarettes, uncomplicated; F19.282 Other psychoactive substance dependence with psychoactive substance-induced sleep disorder; F19.24 Other psychoactive substance dependence with psychoactive substance-induced mood disorder; F31.9 Bipolar disorder, unspecified; F39 Unspecified mood [affective] disorder; F43.10 Post-traumatic stress disorder, unspecified; Z62.810 Personal history of physical and sexual abuse in childhood; Z91.013 Allergy to seafood; Z91.018 Allergy to other foods
CPT/HCPCS: 71046-TC-FY

== ENCOUNTER 2023-04-08 14:41 | Inpatient (IN) | payer OTHER ==
[2023-04-08 15:46] VITALS: BMI 23.5
[2023-04-08] MEDS ORDERED: IBUPROFEN 400 MG TABLET (FP) PO PRN (16:19)
[2023-04-08] MEDS ORDERED: ACETAMINOPHEN 325 MG TABLET (FP) PO PRN (16:19)
[2023-04-08] MEDS ORDERED: guaiFENesin 600 MG TABLET.ER (FP) PO PRN (16:19)
[2023-04-08] MEDS ORDERED: METHOCARBAMOL 500 MG TABLET PO PRN (16:19)
[2023-04-08] MEDS ORDERED: IBUPROFEN 600 MG TABLET (FP) PO PRN (16:19)
[2023-04-08] MEDS ORDERED: BENZOCAINE/MENTHOL (CHLORASEPTIC ) LOZENGE MM PRN (16:19)
[2023-04-08] MEDS ORDERED: NALOXONE HCL 0.4 MG/ML VIAL IM PRN (16:19)
[2023-04-08] MEDS ORDERED: ONDANSETRON *ODT* 4 MG TABLET SL PRN (16:19)
[2023-04-08] MEDS ORDERED: NICOTINE POLACRILEX 2 MG GUM BUC PRN (16:19)
[2023-04-08] MEDS ORDERED: LOPERAMIDE HCL 2 MG CAPSULE PO PRN (16:19)
[2023-04-08] MEDS ORDERED: MAGNESIUM HYDROX 2400MG/30ML ORAL SUSPENSION 30 ML CUP PO PRN (16:19)
[2023-04-08] MEDS ORDERED: DICYCLOMINE HCL 10 MG CAPSULE PO PRN (16:19)
[2023-04-08] MEDS ORDERED: MAG HYDROX/AL HYDROX/SIMETH 30 ML UNIT-DOSE CUP PO PRN (16:19)
[2023-04-08] MEDS ORDERED: hydrOXYzine PAMOATE 25 MG CAPSULE (FP) PO PRN (16:19)
[2023-04-08] MEDS ORDERED: BENZONATATE 200 MG CAPSULE PO PRN (16:19)
[2023-04-08] MEDS ORDERED: BISMUTH SUBSALICYLATE 524 MG/30 ML PO PRN (16:19)
[2023-04-08] MEDS ORDERED: NALOXONE HCL (KLOXXADO) 8 MG SPRAY NS PRN (16:19)
[2023-04-08] MEDS ORDERED: POLYETHYLENE GLYCOL (HEALTHYLAX) 3350 17 GM PACKET PO PRN (16:19)
[2023-04-08] MEDS ORDERED: diazePAM 5 MG TABLET PO PRN (17:55)
[2023-04-08] MEDS: THIAMINE HCL 100 MG TABLET (FP) PO SCH (22:10)
[2023-04-08] MEDS: MELATONIN 5 MG TABLETS PO SCH (22:10)
[2023-04-08] MEDS: diazePAM 5 MG TABLET PO SCH (22:10)
[2023-04-09] MEDS: diazePAM 5 MG TABLET PO SCH ×4 (05:33→22:14)
[2023-04-09] MEDS: PRENATAL VITAMINS W/ FOLIC ACID TABLET (FP) PO SCH (10:21)
[2023-04-09] MEDS: NICOTINE 7 MG/24 HOURS TOPICAL PATCH TD SCH (10:22)
[2023-04-09 13:58] LABS: HEMATOCRIT 40.9 % (32.4-45.2); HEMOGLOBIN 13.4 GM/dL (10.7-15.3); MCH 31.5 pg (25.7-33.7); MCHC 32.7 g/dl (32.0-36.0); MEAN CELL VOLUME 96.2 fl (80-96); MEAN PLT VOLUME 8.3 fl (7.5-11.1); PLATELET COUNT 331 10^3/uL (134-434); RBC 4.25 M/mm3 (3.60-5.2); RDW 13.5 % (11.6-15.6); WHITE BLOOD COUNT 4.8 K/mm3 (4.0-10.0)
[2023-04-09 14:04] LABS: POTASSIUM 4.7 mmol/L (3.5-5.1)
[2023-04-09 14:22] LABS: CALCIUM 8.9 mg/dL (8.5-10.1)
[2023-04-09 14:24] LABS: ALBUMIN 3.1 g/dl (3.4-5.0); BLOOD UREA NITROGEN 5.8 mg/dL (7-18)
[2023-04-09 14:26] LABS: CREATININE 0.6 mg/dL (0.55-1.3)
[2023-04-09 14:28] LABS: BILIRUBIN,TOTAL 0.4 mg/dL (0.2-1); TOT PROT 6.4 g/dl (6.4-8.2)
[2023-04-09] MEDS: MELATONIN 5 MG TABLETS PO SCH (22:13)
[2023-04-09] MEDS: traZODone HCL 50 MG TABLET (FP) PO SCH (22:14)
[2023-04-09] MEDS: QUEtiapine FUMARATE 100 MG TABLET (FP) PO SCH (22:14)
[2023-04-09] MEDS: THIAMINE HCL 100 MG TABLET (FP) PO SCH (22:14)
[2023-04-10] MEDS: diazePAM 5 MG TABLET PO SCH ×3 (05:40→22:38)
[2023-04-10] MEDS: NICOTINE 7 MG/24 HOURS TOPICAL PATCH TD SCH (10:06)
[2023-04-10] MEDS: PRENATAL VITAMINS W/ FOLIC ACID TABLET (FP) PO SCH (10:07)
[2023-04-10] MEDS: THIAMINE HCL 100 MG TABLET (FP) PO SCH (22:38)
[2023-04-10] MEDS: QUEtiapine FUMARATE 100 MG TABLET (FP) PO SCH (22:38)
[2023-04-10] MEDS: MELATONIN 5 MG TABLETS PO SCH (22:38)
[2023-04-10] MEDS: traZODone HCL 50 MG TABLET (FP) PO SCH (22:38)
[2023-04-11] MEDS: diazePAM 5 MG TABLET PO SCH ×2 (05:47→17:11)
[2023-04-11] MEDS: NICOTINE 7 MG/24 HOURS TOPICAL PATCH TD SCH (09:41)
[2023-04-11] MEDS: PRENATAL VITAMINS W/ FOLIC ACID TABLET (FP) PO SCH (09:41)
[2023-04-11] MEDS: MELATONIN 5 MG TABLETS PO SCH (22:10)
[2023-04-11] MEDS: THIAMINE HCL 100 MG TABLET (FP) PO SCH (22:10)
[2023-04-11] MEDS: QUEtiapine FUMARATE 100 MG TABLET (FP) PO SCH (22:10)
[2023-04-11] MEDS: traZODone HCL 50 MG TABLET (FP) PO SCH (22:10)
[2023-04-12] MEDS ORDERED: diazePAM 5 MG TABLET PO ONE (06:00)
[2023-04-12 09:14] VITALS: BP 101/65; PULSE 75; RESP 18; TEMP 96.9
[2023-04-12] MEDS: NICOTINE 7 MG/24 HOURS TOPICAL PATCH TD SCH (09:25)
[2023-04-12] MEDS: PRENATAL VITAMINS W/ FOLIC ACID TABLET (FP) PO SCH (09:26)
== END 2023-04-12 12:47 | disposition other institution (70) | DRG 774 ==
LOC: YASAS 14:41 → Y3N 17:05
PROVIDERS: ADMIT Allergy & Immunology; ATTEND Allergy & Immunology
PROC: HZ2ZZZZ Detoxification Services for Substance Abuse Treatment (ICD-10-PCS; principal; 2023-04-08)
DX: F10.230 Alcohol dependence with withdrawal, uncomplicated (principal); F14.20 Cocaine dependence, uncomplicated; F12.20 Cannabis dependence, uncomplicated; F17.210 Nicotine dependence, cigarettes, uncomplicated; F19.94 Other psychoactive substance use, unspecified with psychoactive substance-induced mood disorder; J45.20 Mild intermittent asthma, uncomplicated; G47.00 Insomnia, unspecified; Z91.013 Allergy to seafood; Z62.810 Personal history of physical and sexual abuse in childhood; Z56.0 Unemployment, unspecified; Z59.00 Homelessness unspecified
CPT/HCPCS: 36415; 71046-TC-FY; 80053; 81025; 85027; 86780; 87635; 87811; Q0162

== ENCOUNTER 2023-04-12 12:53 | Inpatient (IN) | payer OTHER ==
[2023-04-12] MEDS ORDERED: BENZONATATE 200 MG CAPSULE PO PRN (15:32)
[2023-04-12] MEDS ORDERED: MAGNESIUM HYDROX 2400MG/30ML ORAL SUSPENSION 30 ML CUP PO PRN (15:32)
[2023-04-12] MEDS ORDERED: NICOTINE POLACRILEX 2 MG GUM BUC PRN (15:32)
[2023-04-12] MEDS ORDERED: NALOXONE HCL (KLOXXADO) 8 MG SPRAY NS PRN (15:32)
[2023-04-12] MEDS ORDERED: LOPERAMIDE HCL 2 MG CAPSULE PO PRN (15:32)
[2023-04-12] MEDS ORDERED: AMMONIUM LACTATE 12% LOTION 225 GM BOTTLE TP PRN (15:32)
[2023-04-12] MEDS ORDERED: guaiFENesin 600 MG TABLET.ER (FP) PO PRN (15:32)
[2023-04-12] MEDS ORDERED: COLLOIDAL OATMEAL 1 BAR EACH TP PRN (15:32)
[2023-04-12] MEDS ORDERED: NALOXONE HCL 0.4 MG/ML VIAL IVPUSH PRN (15:32)
[2023-04-12] MEDS ORDERED: IBUPROFEN 400 MG TABLET (FP) PO PRN (15:32)
[2023-04-12] MEDS ORDERED: POLYETHYLENE GLYCOL (HEALTHYLAX) 3350 17 GM PACKET PO PRN (15:32)
[2023-04-12] MEDS ORDERED: ACETAMINOPHEN 325 MG TABLET (FP) PO PRN (15:32)
[2023-04-12] MEDS ORDERED: BENZOCAINE/MENTHOL (CHLORASEPTIC ) LOZENGE MM PRN (15:32)
[2023-04-12] MEDS ORDERED: NICOTINE 10 MG CARTRIDGE (INHALER) IH PRN (15:32)
[2023-04-12] MEDS ORDERED: NICOTINE 14 MG/24 HOURS TOPICAL PATCH TD PRN (15:32)
[2023-04-12] MEDS ORDERED: IBUPROFEN 600 MG TABLET (FP) PO PRN (15:32)
[2023-04-12] MEDS: hydrOXYzine PAMOATE 25 MG CAPSULE (FP) PO PRN (20:04)
[2023-04-12] MEDS: QUEtiapine FUMARATE 100 MG TABLET (FP) PO SCH (21:08)
[2023-04-12] MEDS: THIAMINE HCL 100 MG TABLET (FP) PO SCH (21:08)
[2023-04-12] MEDS: METHOCARBAMOL 500 MG TABLET PO PRN (21:08)
[2023-04-12] MEDS: MAG HYDROX/AL HYDROX/SIMETH 30 ML UNIT-DOSE CUP PO PRN (21:08)
[2023-04-12] MEDS: MELATONIN 5 MG TABLETS PO SCH (21:08)
[2023-04-12] MEDS: traZODone HCL 50 MG TABLET (FP) PO SCH (21:08)
[2023-04-13 07:40] VITALS: RESP 18
[2023-04-13] MEDS: PRENATAL VITAMINS W/ FOLIC ACID TABLET (FP) PO SCH (10:05)
[2023-04-13] MEDS: hydrOXYzine PAMOATE 25 MG CAPSULE (FP) PO PRN (15:35)
[2023-04-13] MEDS: THIAMINE HCL 100 MG TABLET (FP) PO SCH (21:22)
[2023-04-13] MEDS: QUEtiapine FUMARATE 100 MG TABLET (FP) PO SCH (21:22)
[2023-04-13] MEDS: MELATONIN 5 MG TABLETS PO SCH (21:22)
[2023-04-13] MEDS: traZODone HCL 50 MG TABLET (FP) PO SCH (21:22)
[2023-04-13] MEDS: METHOCARBAMOL 500 MG TABLET PO PRN (21:24)
[2023-04-14] MEDS: PRENATAL VITAMINS W/ FOLIC ACID TABLET (FP) PO SCH (10:02)
[2023-04-14] MEDS: hydrOXYzine PAMOATE 25 MG CAPSULE (FP) PO PRN (12:43)
[2023-04-14] MEDS: METHOCARBAMOL 500 MG TABLET PO PRN (12:43)
[2023-04-14] MEDS: MAG HYDROX/AL HYDROX/SIMETH 30 ML UNIT-DOSE CUP PO PRN (20:38)
[2023-04-14] MEDS: traZODone HCL 50 MG TABLET (FP) PO SCH (21:02)
[2023-04-14] MEDS: THIAMINE HCL 100 MG TABLET (FP) PO SCH (21:02)
[2023-04-14] MEDS: QUEtiapine FUMARATE 100 MG TABLET (FP) PO SCH (21:02)
[2023-04-14] MEDS: MELATONIN 5 MG TABLETS PO SCH (21:02)
[2023-04-15] MEDS: PRENATAL VITAMINS W/ FOLIC ACID TABLET (FP) PO SCH ×2 (10:39→11:40)
[2023-04-15] MEDS: hydrOXYzine PAMOATE 25 MG CAPSULE (FP) PO PRN (11:40)
[2023-04-15] MEDS: METHOCARBAMOL 500 MG TABLET PO PRN (11:40)
[2023-04-15] MEDS: MAG HYDROX/AL HYDROX/SIMETH 30 ML UNIT-DOSE CUP PO PRN (18:49)
[2023-04-15] MEDS: QUEtiapine FUMARATE 100 MG TABLET (FP) PO SCH (21:41)
[2023-04-15] MEDS: THIAMINE HCL 100 MG TABLET (FP) PO SCH (21:41)
[2023-04-15] MEDS: MELATONIN 5 MG TABLETS PO SCH (21:41)
[2023-04-15] MEDS: traZODone HCL 50 MG TABLET (FP) PO SCH (21:41)
[2023-04-16] MEDS: PRENATAL VITAMINS W/ FOLIC ACID TABLET (FP) PO SCH (10:01)
[2023-04-16] MEDS: MAG HYDROX/AL HYDROX/SIMETH 30 ML UNIT-DOSE CUP PO PRN (13:06)
[2023-04-16] MEDS: hydrOXYzine PAMOATE 25 MG CAPSULE (FP) PO PRN (13:06)
[2023-04-16] MEDS: METHOCARBAMOL 500 MG TABLET PO PRN (15:35)
[2023-04-16] MEDS: traZODone HCL 50 MG TABLET (FP) PO SCH (21:18)
[2023-04-16] MEDS: MELATONIN 5 MG TABLETS PO SCH (21:18)
[2023-04-16] MEDS: QUEtiapine FUMARATE 100 MG TABLET (FP) PO SCH (21:18)
[2023-04-16] MEDS: THIAMINE HCL 100 MG TABLET (FP) PO SCH (21:18)
[2023-04-17 07:58] VITALS: BP 108/73; PULSE 85; TEMP 97.5
[2023-04-17] MEDS: hydrOXYzine PAMOATE 25 MG CAPSULE (FP) PO PRN (08:31)
[2023-04-17] MEDS: PRENATAL VITAMINS W/ FOLIC ACID TABLET (FP) PO SCH (09:39)
== END 2023-04-17 10:13 | disposition home or self-care (01) | DRG 772 ==
LOC: YASAS 12:53 → Y5N 12:54
PROVIDERS: ADMIT Allergy & Immunology; ATTEND Psychiatry & Neurology Pain Medicine
PROC: HZ42ZZZ Group Counseling for Substance Abuse Treatment, Cognitive-Behavioral (ICD-10-PCS; principal; 2023-04-12)
DX: F10.20 Alcohol dependence, uncomplicated (principal); F14.20 Cocaine dependence, uncomplicated; F12.20 Cannabis dependence, uncomplicated; F19.982 Other psychoactive substance use, unspecified with psychoactive substance-induced sleep disorder; F19.94 Other psychoactive substance use, unspecified with psychoactive substance-induced mood disorder; F31.89 Other bipolar disorder; F43.10 Post-traumatic stress disorder, unspecified; J45.20 Mild intermittent asthma, uncomplicated; G47.00 Insomnia, unspecified; Z91.013 Allergy to seafood; Z91.148 Patient's other noncompliance with medication regimen for other reason; Z56.0 Unemployment, unspecified; Z59.00 Homelessness unspecified
CPT/HCPCS: 36415; 86803

== ENCOUNTER 2023-06-27 15:53 | Inpatient (IN) | payer OTHER ==
[2023-06-27 17:49] VITALS: BMI 23.6
[2023-06-27] MEDS ORDERED: IBUPROFEN 600 MG TABLET (FP) PO PRN (19:27)
[2023-06-27] MEDS ORDERED: ONDANSETRON *ODT* 4 MG TABLET SL PRN (19:27)
[2023-06-27] MEDS ORDERED: ACETAMINOPHEN 325 MG TABLET (FP) PO PRN (19:27)
[2023-06-27] MEDS ORDERED: MAG HYDROX/AL HYDROX/SIMETH 30 ML UNIT-DOSE CUP PO PRN (19:27)
[2023-06-27] MEDS ORDERED: POLYETHYLENE GLYCOL (HEALTHYLAX) 3350 17 GM PACKET PO PRN (19:27)
[2023-06-27] MEDS ORDERED: P-EPHED 60MG/TRIPROLIDI 2.5MG TABLET PO PRN (19:27)
[2023-06-27] MEDS ORDERED: BENZONATATE 200 MG CAPSULE PO PRN (19:27)
[2023-06-27] MEDS ORDERED: MAGNESIUM HYDROX 2400MG/30ML ORAL SUSPENSION 30 ML CUP PO PRN (19:27)
[2023-06-27] MEDS ORDERED: DICYCLOMINE HCL 10 MG CAPSULE PO PRN (19:27)
[2023-06-27] MEDS ORDERED: NICOTINE POLACRILEX 2 MG GUM BUC PRN (19:27)
[2023-06-27] MEDS ORDERED: LOPERAMIDE HCL 2 MG CAPSULE PO PRN (19:27)
[2023-06-27] MEDS ORDERED: IBUPROFEN 400 MG TABLET (FP) PO PRN (19:27)
[2023-06-27] MEDS ORDERED: BENZOCAINE/MENTHOL (CHLORASEPTIC ) LOZENGE MM PRN (19:27)
[2023-06-27] MEDS ORDERED: guaiFENesin 600 MG TABLET.ER (FP) PO PRN (19:27)
[2023-06-27] MEDS ORDERED: BISMUTH SUBSALICYLATE 524 MG/30 ML PO PRN (19:27)
[2023-06-27] MEDS ORDERED: diazePAM 5 MG TABLET PO ONE ×2 (19:32→21:00)
[2023-06-27] MEDS ORDERED: diazePAM 5 MG TABLET PO PRN (19:32)
[2023-06-27] MEDS ORDERED: THIAMINE HCL 100 MG TABLET (FP) PO SCH (22:00)
[2023-06-27] MEDS: MELATONIN 5 MG TABLETS PO SCH (22:57)
[2023-06-27] MEDS: BACITRACIN 0.9 GM PACKET TP SCH (22:58)
[2023-06-27] MEDS: diazePAM 5 MG TABLET PO SCH (22:58)
[2023-06-27] MEDS: CEPHALEXIN MONOHYDRATE 500 MG CAPSULE (UD) PO SCH (23:02)
[2023-06-28] MEDS: diazePAM 5 MG TABLET PO SCH ×4 (05:45→22:12)
[2023-06-28] MEDS: CEPHALEXIN MONOHYDRATE 500 MG CAPSULE (UD) PO SCH ×3 (05:46→17:13)
[2023-06-28] MEDS: PRENATAL VITAMINS W/ FOLIC ACID TABLET (FP) PO SCH (10:16)
[2023-06-28] MEDS: BACITRACIN 0.9 GM PACKET TP SCH ×2 (10:16→22:12)
[2023-06-28] MEDS: FOLIC ACID 1 MG TABLET (FP) PO SCH (10:36)
[2023-06-28 11:49] LABS: HEMOGLOBIN 12.9 GM/dL (10.7-15.3); MCH 32.1 pg (25.7-33.7); MEAN CELL VOLUME 94.4 fl (80-96); MEAN PLT VOLUME 8.2 fl (7.5-11.1); PLATELET COUNT 237 10^3/uL (134-434); RBC 4.03 M/mm3 (3.60-5.2); RDW 13.5 % (11.6-15.6); WHITE BLOOD COUNT 5.2 K/mm3 (4.0-10.0)
[2023-06-28 12:10] LABS: BLOOD UREA NITROGEN 13.8 mg/dL (7-18); CALCIUM 8.7 mg/dL (8.5-10.1)
[2023-06-28 12:11] LABS: ALBUMIN 3.1 g/dl (3.4-5.0)
[2023-06-28 12:14] LABS: CREATININE 0.6 mg/dL (0.55-1.3)
[2023-06-28 12:15] LABS: BILIRUBIN,TOTAL 0.5 mg/dL (0.2-1); TOT PROT 6.2 g/dl (6.4-8.2)
[2023-06-28] MEDS: QUEtiapine FUMARATE 100 MG TABLET (FP) PO SCH (22:12)
[2023-06-28] MEDS: MELATONIN 5 MG TABLETS PO SCH (22:12)
[2023-06-28] MEDS: THIAMINE HCL 100 MG TABLET (FP) PO SCH (22:12)
[2023-06-29] MEDS: CEPHALEXIN MONOHYDRATE 500 MG CAPSULE (UD) PO SCH ×4 (00:30→17:42)
[2023-06-29] MEDS: diazePAM 5 MG TABLET PO SCH ×2 (05:53→17:42)
[2023-06-29] MEDS: FOLIC ACID 1 MG TABLET (FP) PO SCH (09:39)
[2023-06-29] MEDS: BACITRACIN 0.9 GM PACKET TP SCH ×2 (09:39→22:21)
[2023-06-29] MEDS: hydrOXYzine PAMOATE 25 MG CAPSULE (FP) PO PRN (09:39)
[2023-06-29] MEDS: PRENATAL VITAMINS W/ FOLIC ACID TABLET (FP) PO SCH (09:39)
[2023-06-29] MEDS: METHOCARBAMOL 500 MG TABLET PO PRN (09:39)
[2023-06-29] MEDS: THIAMINE HCL 100 MG TABLET (FP) PO SCH (22:15)
[2023-06-29] MEDS: MELATONIN 5 MG TABLETS PO SCH (22:16)
[2023-06-29] MEDS: QUEtiapine FUMARATE 100 MG TABLET (FP) PO SCH (22:16)
[2023-06-30] MEDS: CEPHALEXIN MONOHYDRATE 500 MG CAPSULE (UD) PO SCH ×3 (00:32→11:19)
[2023-06-30] MEDS ORDERED: diazePAM 5 MG TABLET PO ONE (06:00)
[2023-06-30] MEDS: FOLIC ACID 1 MG TABLET (FP) PO SCH (09:10)
[2023-06-30] MEDS: BACITRACIN 0.9 GM PACKET TP SCH (09:10)
[2023-06-30] MEDS: METHOCARBAMOL 500 MG TABLET PO PRN (09:10)
[2023-06-30] MEDS: PRENATAL VITAMINS W/ FOLIC ACID TABLET (FP) PO SCH (09:10)
[2023-06-30] MEDS: hydrOXYzine PAMOATE 25 MG CAPSULE (FP) PO PRN (09:10)
[2023-06-30 09:18] VITALS: RESP 18
[2023-06-30 13:18] VITALS: BP 104/69; PULSE 80; TEMP 97.7
== END 2023-06-30 13:37 | disposition home or self-care (01) | DRG 774 ==
LOC: YASAS 15:53 → Y6N 20:16
PROVIDERS: ADMIT Allergy & Immunology; ATTEND Surgery
PROC: HZ2ZZZZ Detoxification Services for Substance Abuse Treatment (ICD-10-PCS; principal; 2023-06-27)
DX: F10.230 Alcohol dependence with withdrawal, uncomplicated (principal); F14.20 Cocaine dependence, uncomplicated; F12.20 Cannabis dependence, uncomplicated; F17.210 Nicotine dependence, cigarettes, uncomplicated; F25.0 Schizoaffective disorder, bipolar type; J45.20 Mild intermittent asthma, uncomplicated; R73.9 Hyperglycemia, unspecified; R76.11 Nonspecific reaction to tuberculin skin test without active tuberculosis; Z62.810 Personal history of physical and sexual abuse in childhood; Z91.410 Personal history of adult physical and sexual abuse
CPT/HCPCS: 36415; 80053; 81025; 83036; 85027; 86780; 87635; 87811

== ENCOUNTER 2023-12-31 09:10 | Inpatient (IN) | payer OTHER ==
[2023-12-31 09:56] VITALS: BMI 23.6
[2023-12-31] MEDS: IBUPROFEN 600 MG TABLET (FP) PO PRN (10:05)
[2023-12-31] MEDS ORDERED: chlordiazePOXIDE HCL 25 MG CAPSULE PO PRN (10:07)
[2023-12-31] MEDS ORDERED: BISMUTH SUBSALICYLATE 524 MG/30 ML PO PRN (10:09)
[2023-12-31] MEDS ORDERED: NICOTINE POLACRILEX 2 MG LOZENGE BC PRN (10:09)
[2023-12-31] MEDS ORDERED: MAGNESIUM HYDROX 2400MG/30ML ORAL SUSPENSION 30 ML CUP PO PRN (10:09)
[2023-12-31] MEDS ORDERED: DICYCLOMINE HCL 10 MG CAPSULE PO PRN (10:09)
[2023-12-31] MEDS ORDERED: guaiFENesin 600 MG TABLET.ER (FP) PO PRN (10:09)
[2023-12-31] MEDS ORDERED: IBUPROFEN 400 MG TABLET (FP) PO PRN (10:09)
[2023-12-31] MEDS ORDERED: LOPERAMIDE HCL 2 MG CAPSULE PO PRN (10:09)
[2023-12-31] MEDS ORDERED: ONDANSETRON *ODT* 4 MG TABLET SL PRN (10:09)
[2023-12-31] MEDS ORDERED: POLYETHYLENE GLYCOL (HEALTHYLAX) 3350 17 GM PACKET PO PRN (10:09)
[2023-12-31] MEDS ORDERED: NICOTINE POLACRILEX 2 MG GUM BUC PRN (10:09)
[2023-12-31] MEDS ORDERED: BENZONATATE 200 MG CAPSULE PO PRN (10:09)
[2023-12-31] MEDS ORDERED: BENZOCAINE/MENTHOL (CHLORASEPTIC ) LOZENGE MM PRN (10:09)
[2023-12-31] MEDS ORDERED: MAG HYDROX/AL HYDROX/SIMETH 30 ML UNIT-DOSE CUP PO PRN (10:09)
[2023-12-31] MEDS ORDERED: IBUPROFEN 600 MG TABLET (FP) PO ONE (10:45)
[2023-12-31] MEDS ORDERED: chlordiazePOXIDE HCL 25 MG CAPSULE ONE (10:45)
[2023-12-31] MEDS: chlordiazePOXIDE HCL 25 MG CAPSULE PO SCH (11:02)
[2023-12-31] MEDS: ACETAMINOPHEN 325 MG TABLET (FP) PO PRN (18:05)
[2023-12-31] MEDS: MELATONIN 5 MG TABLETS PO SCH (22:39)
[2023-12-31] MEDS: THIAMINE 100 MG TABLET PO SCH (22:40)
[2023-12-31] MEDS: METHOCARBAMOL 500 MG TABLET PO PRN (22:40)
[2023-12-31] MEDS: BACITRACIN 0.9 GM PACKET TP SCH (22:40)
[2024-01-01] MEDS: FOLIC ACID 1 MG TABLET (FP) PO SCH (10:17)
[2024-01-01] MEDS: PRENATAL VITAMINS W/ FOLIC ACID TABLET (FP) PO SCH (10:17)
[2024-01-01 11:04] LABS: POTASSIUM 4.2 mmol/L (3.5-5.1)
[2024-01-01 11:05] LABS: HEMATOCRIT 38.2 % (32.4-45.2); HEMOGLOBIN 12.3 GM/dL (10.7-15.3); MCH 30.9 pg (25.7-33.7); MCHC 32.2 g/dl (32.0-36.0); MEAN CELL VOLUME 96.1 fl (80-96); PLATELET COUNT 304 10^3/uL (134-434); RBC 3.97 M/mm3 (3.60-5.2); RDW 13.4 % (11.6-15.6); WHITE BLOOD COUNT 6.7 K/mm3 (4.0-10.0)
[2024-01-01 11:09] LABS: CALCIUM 8.7 mg/dL (8.5-10.1)
[2024-01-01 11:10] LABS: ALBUMIN 2.8 g/dl (3.4-5.0); BLOOD UREA NITROGEN 6.4 mg/dL (7-18)
[2024-01-01 11:13] LABS: CREATININE 0.4 mg/dL (0.55-1.3)
[2024-01-01 11:15] LABS: BILIRUBIN,TOTAL 0.6 mg/dL (0.2-1)
[2024-01-01] MEDS: PNEUMOC 20-VAL CONJ-DIP CRM/PF 0.5 ML SYRINGE IM ONE (11:40)
[2024-01-01] MEDS: QUEtiapine FUMARATE 100 MG TABLET (FP) PO SCH (22:44)
[2024-01-02] MEDS: chlordiazePOXIDE HCL 25 MG CAPSULE PO SCH (05:57)
[2024-01-02 09:27] VITALS: RESP 18
[2024-01-02 12:45] VITALS: TEMP 97.7
[2024-01-02 18:45] VITALS: BP 126/83; PULSE 90
[2024-01-03] MEDS ORDERED: chlordiazePOXIDE HCL 10 MG CAPSULE PO PRN
[2024-01-03] MEDS ORDERED: chlordiazePOXIDE HCL 10 MG CAPSULE PO SCH (05:00)
[2024-01-04] MEDS ORDERED: chlordiazePOXIDE HCL 10 MG CAPSULE PO SCH (05:00)
[2024-01-05] MEDS ORDERED: chlordiazePOXIDE HCL 10 MG CAPSULE PO ONE (05:00)
== END 2024-01-02 16:55 | disposition left against medical advice (07) | DRG 770 ==
LOC: YASAS 09:10 → Y6N 11:59
PROVIDERS: ADMIT Allergy & Immunology; ATTEND Surgery
PROC: HZ2ZZZZ Detoxification Services for Substance Abuse Treatment (ICD-10-PCS; principal; 2023-12-31)
DX: F10.230 Alcohol dependence with withdrawal, uncomplicated (principal); F14.20 Cocaine dependence, uncomplicated; F12.20 Cannabis dependence, uncomplicated; F17.210 Nicotine dependence, cigarettes, uncomplicated; F25.1 Schizoaffective disorder, depressive type; F19.24 Other psychoactive substance dependence with psychoactive substance-induced mood disorder; M25.561 Pain in right knee; R26.89 Other abnormalities of gait and mobility; Z56.0 Unemployment, unspecified; Z59.00 Homelessness unspecified
CPT/HCPCS: 36415; 73562-TC-RT-FY; 80053; 80305; 80307; 81025; 85027; 86780; 90677; 93005; 93010; G0009

== ENCOUNTER 2024-05-08 10:42 | Inpatient (IN) | payer OTHER ==
[2024-05-08 11:16] VITALS: BMI 21.2
[2024-05-08] MEDS ORDERED: BENZONATATE 200 MG CAPSULE PO PRN (13:17)
[2024-05-08] MEDS ORDERED: BENZOCAINE/MENTHOL (CHLORASEPTIC ) LOZENGE MM PRN (13:17)
[2024-05-08] MEDS ORDERED: NALOXONE HCL 0.4 MG/ML VIAL IM PRN (13:17)
[2024-05-08] MEDS ORDERED: LOPERAMIDE HCL 2 MG CAPSULE PO PRN (13:17)
[2024-05-08] MEDS ORDERED: ONDANSETRON *ODT* 4 MG TABLET SL PRN (13:17)
[2024-05-08] MEDS ORDERED: POLYETHYLENE GLYCOL (HEALTHYLAX) 3350 17 GM PACKET PO PRN (13:17)
[2024-05-08] MEDS ORDERED: METHOCARBAMOL 500 MG TABLET PO PRN (13:17)
[2024-05-08] MEDS ORDERED: chlordiazePOXIDE HCL 25 MG CAPSULE PO PRN (13:17)
[2024-05-08] MEDS ORDERED: DICYCLOMINE HCL 10 MG CAPSULE PO PRN (13:17)
[2024-05-08] MEDS ORDERED: BISMUTH SUBSALICYLATE 524 MG/30 ML PO PRN (13:17)
[2024-05-08] MEDS ORDERED: guaiFENesin 600 MG TABLET.ER (FP) PO PRN (13:17)
[2024-05-08] MEDS ORDERED: MAGNESIUM HYDROX 2400MG/30ML ORAL SUSPENSION 30 ML CUP PO PRN (13:17)
[2024-05-08] MEDS ORDERED: IBUPROFEN 400 MG TABLET (FP) PO PRN (13:17)
[2024-05-08] MEDS ORDERED: IBUPROFEN 600 MG TABLET (FP) PO PRN (13:17)
[2024-05-08] MEDS ORDERED: MAG HYDROX/AL HYDROX/SIMETH 30 ML UNIT-DOSE CUP PO PRN (13:17)
[2024-05-08] MEDS ORDERED: NALOXONE (NARCAN) HCL 4 MG/0.1 ML SPRAY NS PRN (13:17)
[2024-05-08] MEDS: NICOTINE 14 MG/24 HOURS TOPICAL PATCH TD SCH (13:49)
[2024-05-08] MEDS: PRENATAL VITAMINS W/ FOLIC ACID TABLET (FP) PO SCH (13:49)
[2024-05-08] MEDS: hydrOXYzine PAMOATE 25 MG CAPSULE (FP) PO PRN (14:08)
[2024-05-08] MEDS: chlordiazePOXIDE HCL 25 MG CAPSULE PO SCH (17:13)
[2024-05-08] MEDS: ACETAMINOPHEN 325 MG TABLET (FP) PO PRN (17:14)
[2024-05-08] MEDS: MELATONIN 5 MG TABLETS PO SCH (22:31)
[2024-05-08] MEDS: THIAMINE 100 MG TABLET PO SCH (22:31)
[2024-05-09 12:47] LABS: HEMATOCRIT 37.9 % (32.4-45.2); HEMOGLOBIN 12.8 GM/dL (10.7-15.3); MCH 31.5 pg (25.7-33.7); MCHC 33.9 g/dl (32.0-36.0); MEAN CELL VOLUME 92.9 fl (80-96); MEAN PLT VOLUME 8.6 fl (7.5-11.1); PLATELET COUNT 407 10^3/uL (134-434); RBC 4.08 M/mm3 (3.60-5.2); RDW 14.4 % (11.6-15.6); WHITE BLOOD COUNT 8.1 K/mm3 (4.0-10.0)
[2024-05-09 12:58] LABS: POTASSIUM 3.5 mmol/L (3.5-5.1)
[2024-05-09 13:05] LABS: ALBUMIN 3.7 g/dl (3.4-5.0); CALCIUM 9.1 mg/dL (8.5-10.1)
[2024-05-09 13:06] LABS: BLOOD UREA NITROGEN 8.1 mg/dL (7-18)
[2024-05-09 13:09] LABS: CREATININE 0.9 mg/dL (0.55-1.3)
[2024-05-09 13:10] LABS: BILIRUBIN,TOTAL 0.8 mg/dL (0.2-1)
[2024-05-10] MEDS: chlordiazePOXIDE HCL 25 MG CAPSULE PO SCH (05:37)
[2024-05-11] MEDS ORDERED: chlordiazePOXIDE HCL 10 MG CAPSULE PO PRN
[2024-05-11] MEDS: chlordiazePOXIDE HCL 10 MG CAPSULE PO SCH (04:13)
[2024-05-11 12:44] VITALS: BP 125/86; PULSE 88; RESP 17; TEMP 97.6
[2024-05-12] MEDS ORDERED: chlordiazePOXIDE HCL 10 MG CAPSULE PO SCH (05:00)
[2024-05-13] MEDS ORDERED: chlordiazePOXIDE HCL 10 MG CAPSULE PO ONE (05:00)
== END 2024-05-11 14:28 | disposition home or self-care (01) | DRG 774 ==
LOC: YASAS 10:42 → Y3N 13:18
PROVIDERS: ADMIT Allergy & Immunology; ATTEND Surgery
PROC: HZ2ZZZZ Detoxification Services for Substance Abuse Treatment (ICD-10-PCS; principal; 2024-05-08)
DX: F10.230 Alcohol dependence with withdrawal, uncomplicated (principal); F14.20 Cocaine dependence, uncomplicated; F12.20 Cannabis dependence, uncomplicated; F17.210 Nicotine dependence, cigarettes, uncomplicated; F31.9 Bipolar disorder, unspecified; F25.0 Schizoaffective disorder, bipolar type; Z56.0 Unemployment, unspecified; Z59.02 Unsheltered homelessness
CPT/HCPCS: 36415; 80053; 80305; 80307; 81025; 85027; 86780; 93005; 93010